=== PATIENT | male | born 1945 | race Caucasian/White ===

== ENCOUNTER 2018-04-05 10:24 | Inpatient (IN) | payer OTHER ==
[~2018-04-05] VITALS: Ht 167.6 cm; Wt 98.9 kg
--- NOTE | 2018-04-05 10:33 | ED DYSPNEA/ASTHMA COMPLAINT ---
History of Present Illness General Chief Complaint: Dyspnea (COPD, CHF, Other) Stated Complaint: SENT BY DR HERNANDEZ FOR EVAL SOB AND FLUID RETENTI Source: patient, old records Exam Limitations: no limitations Vital Signs & Intake/Output Vital Signs & Intake/Output Vital Signs Date Time Temp Pulse Resp B/P B/P Pulse O2 O2 Flow FiO2 Mean Ox Delivery Rate 04/05 1725 Nasal 2.0L Cannula 04/05 1631 97.9 94 22 113/57 96 Room Air 04/05 1150 97.0 100 106/75 94 Nasal 3.0L Cannula 04/05 1115 97.0 94 16 104/58 94 Nasal 3.0L Cannula 04/05 1025 97 Nasal 2.0L Cannula 04/05 1025 98.0 109 26 107/73 92 Nasal 3.0L Cannula Allergies Coded Allergies: No Known Allergies (04/05/18) Reconcile Medications Aspirin (Lo-Dose Aspirin EC) 81 MG TABLET.DR 1 TAB PO DAILY HEART HEALTH ( Reported) Atorvastatin Calcium 20 MG TABLET 1 TAB PO DAILY CHOLESTEROL (Reported) Cyclosporine (Restasis) 0.05 % DROPERETTE 1 GTT OPH BID EYE (Reported) Lisinopril 5 MG TABLET 1 TAB PO DAILY HEART (Reported) Pioglitazone HCl 30 MG TABLET 1 TAB PO DAILY DIABETES (Reported) Prednisone 20 MG TABLET 1 TAB PO DAILY STEROID (Reported) Silodosin (Rapaflo) 8 MG CAPSULE 1 CAP PO DAILY BPH (Reported) Vilazodone (Viibryd) 40 MG TABLET 1 TAB PO DAILY MENTAL HEALTH (Reported) Triage Nurses Notes Reviewed? yes Onset: Abrupt Duration: week(s):, constant Timing: recent history Severity: moderate, severe Activities at Onset: none HPI: 73-year-old male comes into the emergency room with increased shortness of breath has been going on for the past week. Denies any cough fever chills chest pain. He had an outpatient x-ray done this past which showed a large amount of fluid and was told to come to the hospital for further evaluation by his pulmonary K. Mindi Porras MD. Denies any history of congestive heart failure. Denies any other associated symptoms. (Jin Curry) Past History Medical History Any Pertinent Medical History? none Cardiovascular: hyperlipidemia Endocrine: diabetes Surgical History Surgical History: non-contributory Family History Hx Contributory? No (Jin Curry) Review of Systems Review of Systems Constitutional: Reports: no symptoms. EENTM: Reports: no symptoms. Respiratory: Reports: see HPI. Cardiovascular: Reports: see HPI. GI: Reports: no symptoms. Genitourinary: Reports: no symptoms. Musculoskeletal: Reports: no symptoms. Skin: Reports: no symptoms. Neurological/Psychological: Reports: no symptoms. Hematologic/Endocrine: Reports: no symptoms. Immunologic/Allergic: Reports: no symptoms. All Other Systems: Reviewed and Negative (Jin Curry) Physical Exam Physical Exam General Appearance: well developed/nourished, alert, awake Head: atraumatic Eyes: Bilateral: normal appearance. Ears, Nose, Throat: normal ENT inspection, hearing grossly normal Neck: normal inspection Respiratory: decreased breath sounds (right lower lung field), respiratory distress (mild) Cardiovascular: regular rate/rhythm Gastrointestinal: soft Neurologic/Psych: awake, alert Skin: intact Core Measures ACS in differential dx? No CVA/TIA Diagnosis No Sepsis Present: No Sepsis Focused Exam Completed? No (Jin Curry) Progress Differential Diagnosis: asthma, AMI, bronchitis, costochondritis, CHF, COPD, musculoskeletal pain, pericarditis, pulmonary embolism, pneumonia, pneumothorax, rib fracture, unstable angina Plan of Care: Orders Procedure Date/time Status CT CHEST WO IV CONTRAST 04/06 0800 Active CBC WITHOUT DIFFERENTIAL 04/06 0600 Active BASIC ELECTROLYTES PLUS BUN&CR 04/06 0600 Active Consistent Carbohydrate 3 04/05 D Active Drains/Tubes 04/05 1724 Active Weight 04/05 1631 Active Vital Signs 04/05 1631 Active Teach/Educate 04/05 1631 Active Pain Treatment and Response 04/05 1631 Active Nutritional Intake, Monitor 04/05 1631 Active Isolation 04/05 1631 Active Intake & Output 04/05 1631 Active Patient Care Conference 04/05 1631 Active Activity/Ambulation 04/05 1631 Active STREP PNEUMO URINARY ANTIGEN 04/05 1621 Complete LEGIONELLA URINARY ANTIGEN 04/05 1621 Complete CYTOLOGY SPECIMEN 04/05 1621 Active ECHOCARDIOGRAM 04/05 1600 Active Pathway - chart 04/05 1551 Active Add-on Test (ER Only) 04/05 1500 Active BODY FLUID CELL COUNT 04/05 1500 Active CULTURE,BODY FLUID 04/05 1425 Active BODY FLUID CELL COUNT 04/05 1425 Complete Patient Data 04/05 1402 Active ED Holding Orders 04/05 1354 Active Admit to inpatient 04/05 1354 Active Vital Signs 04/05 1354 Active Code Status 04/05 1354 Active CYTOLOGY SPECIMEN 04/05 1212 Active BODY FLUID TOTAL PROTEIN 04/05 1212 Complete BODY FLUID LDH 04/05 1212 Complete BODY FLUID GLUCOSE 04/05 1212 Complete PLEURAL PH (GEN) 04/05 1206 Complete Add-on Test (ER Only) 04/05 1156 Active Intake & Output 04/05 1155 Active URINALYSIS 04/05 1152 Complete PARTIAL THROMBOPLASTIN TIME 04/05 1100 Complete PROTHROMBIN TIME 04/05 1100 Complete LDH (LACT ACID DEHYDROGENASE) 04/05 1100 Active GLYCOSYLATED HGB 04/05 1100 Active Telemetry/Permaculture Designer 04/05 1032 Complete TROPONIN LEVEL 04/05 1032 Active COMPREHENSIVE METABOLIC PANEL 04/05 1032 Active CBC WITHOUT DIFFERENTIAL 04/05 1032 Complete B-TYPE NATRIURETIC PEP (BNP) 04/05 1032 Active EKG 04/05 1027 Active TRC EVALUATION (GEN) 04/05 UNK Active OXYGEN SETUP (GEN) 04/05 UNK Active INCENTIVE SPIROMETRY TRX (GEN) 04/05 UNK Active House Staff 04/05 UNK Active Lab Add-on Test 04/05 UNK Active VTE Mechanical Prophylaxis 04/05 UNK Active Vital Signs 04/05 UNK Complete Nursing Misc 04/05 UNK Active Intake & Output 04/05 UNK Complete FingerStick- Glucose 04/05 UNK Active Activity/Ambulation 04/05 UNK Active MISSING MEDICATION FORM 04/05 UNK Active PHYSICIAN CONSULT 04/05 UNK Active Current Medications Sig/Alli Start time Last Medication Dose Stop Time Status Admin Azithromycin 250 MG 04/06 1700 AC (Zithromax) Aspirin Buffered 81 MG DAILY 04/06 900 AC (Ecotrin) Atorvastatin Calcium 20 MG DAILY 04/06 900 AC (Lipitor) Enoxaparin Sodium 40 MG DAILY 04/06 900 AC (Lovenox) Lisinopril 5 MG DAILY 04/06 900 AC (Prinivil) Ceftriaxone Sodium 1,000 MG 1700 04/05 1700 AC 04/05 (Rocephin) 1825 Insulin Aspart 0 TIDAC 04/05 1700 AC 04/05 (NovoLOG) 1825 Acetaminophen 650 MG Q6P PRN 04/05 1600 AC (Tylenol) Laboratory Tests 04/05/18 1426: Phlebotomy Draw Site RT CHEST TUBE, Pleural pH 7.28 04/05/18 1425: Fluid WBC 1333 H, Fld Total RBCs Counted 25226 H 04/05/18 1425: Lymphocytes 43, % Normal PMNs 32, Misc Hematology Test , Fluid Glucose 124, Fluid Total Protein 4.3, Fluid LDH 795 04/05/18 1153: Urine Color YEL, Urine Clarity CLEAR, Urine pH 6.0, Ur Specific [place] 1.020, Urine Protein NEG, Urine Ketones NEG, Urine Nitrite NEG, Urine Bilirubin NEG, Urine Urobilinogen 0.2, Ur Leukocyte Esterase NEG, Ur Microscopic EXAM NOT REQUIRED, Urine Hemoglobin NEG, Urine Glucose NEG 04/05/18 1100: Anion Gap 13, Estimated GFR 59 L, BUN/Creatinine Ratio 31.7 H, Glucose 162 H, Hemoglobin A1c Pending, Calcium 8.3 L, Total Bilirubin 0.6, AST 39, ALT 52, Alkaline Phosphatase 143 H, Lactate Dehydrogenase 334, Troponin I < 0.01, Pro-B -Natriuretic Pept 319 H, Total Protein 5.8 L, Albumin 2.9 L, Globulin 2.9, Albumin/Globulin Ratio 1.0 L, PT 13.2 H, INR 1.21 H, APTT 28, CBC w Diff NO MAN DIFF REQ, RBC 4.90, MCV 82.4, MCH 27.3, MCHC 33.2, RDW 15.1 H, MPV 7.1 L, Gran % 83.0 H, Lymphocytes % 5.8 L, Monocytes % 10.7 H, Eosinophils % 0.4, Basophils % 0.1, Absolute Granulocytes 9.3 H, Absolute Lymphocytes 0.7 L, Absolute Monocytes 1.2 H, Absolute Eosinophils 0, Absolute Basophils 0 Microbiology 04/05 1915 URINE ROUT: Legionella Antigen - COMP 04/05 1915 URINE ROUT: Streptococcus pneumoniae Antigen (M - COMP 04/05 1425 BODY FLUID: Body Fluid Culture - RES 04/05 1425 BODY FLUID: Gram Stain - RES 04/05 1212 BODY FLUID: Body Fluid Culture - CAN Cancelled: EDITED 04/05 1212 BODY FLUID: Gram Stain - CAN Cancelled: EDITED Diagnostic Imaging: Viewed by Me: Radiology Read. Discussed w/RAD: Radiology Read. Radiology Impression: PATIENT: JOHNSON HICKS PRESENT AGE: 73 PATIENT ACCOUNT NO: [id number] : 45 LOCATION: [facility] ORDERING PHYSICIAN: Jin LAWLER SERVICE DATE: 04/05/18 EXAM TYPE : RAD - XRY-CHEST XRAY, TWO VIEWS EXAMINATION: XR CHEST CLINICAL INFORMATION: Shortness of breath. COMPARISON: Chest x-ray dated 04/01/2018. TECHNIQUE: 3 views of the chest were obtained. FINDINGS: There has been interval increase in size of the right-sided pleural effusion, with now only a small amount of aerated lung remaining in the right upper lobe. The left lung remains fully expanded and clear. Cardiac silhouette is partially obscured by the right pleural fluid but is normal in size. Calcification of the aortic arch is seen. Bony structures are unremarkable. IMPRESSION: 1. Interval increase in size of right-sided pleural effusion, now large in volume and extending to the right lung apex with only a small amount of aerated lung in the right lung apex remaining. 2. Left lung expanded and clear. DICTATED BY: Marry Juarez MD DATE/TIME DICTATED:04/05/181135 CAR PACKER:BARBARA DATE/TIME TRANSCRIBED:04/05/181135 CONFIDENTIAL, DO NOT COPY WITHOUT APPROPRIATE AUTHORIZATION. <Electronically signed in Other Vendor System> SIGNED BY: Marry Juarez MD 04/05/18 1143 Initial ED EKG: normal sinus rhythm, rate (100), nonspecific ST T wave chg (Jin Curry) Departure Departure Disposition: STILL A PATIENT Condition: Stable Clinical Impression Primary Impression: Hypoxia Secondary Impressions: Large pleural effusion Referrals: Geoff Moore MD (PCP/Family) Departure Forms: Customer Survey General Discharge Information Admission Note Spoke With: Geoff Moore MD Documentation of Exam: Documentation of any treatments & extenuating circumstances including Concerns Regarding Discharge (functional status, medication knowledge or non-compliance, living conditions, etc.) that warrant an admission rather than observation: Patient required chest tube. Interventional radiology. Pulmonary consult. Supplemental oxygen. Medically not safe for discharge. Patient required greater than 72 hours care. Case management consult. (Jin Curry) PA/NEON SIGN SERVICER Co-Sign Statement Statement: ED Attending supervision documentation- [X] I saw and evaluated the patient. I have also reviewed all the pertinent lab results and diagnostic results. I agree with the findings and the plan of care as documented in the PA's/NEON SIGN SERVICER's documentation. [] I have reviewed the ED Record and agree with the PA's/NEON SIGN SERVICER's documentation. [] Additions or exceptions (if any) to the PAs/NEON SIGN SERVICER's note and plan are summarized below: [] I saw and personally examined the patient and I agree with the PAs evaluation. 73-year-old man who was at Merna Porras MD's office and found to be hypoxic with a room air saturation of 89%. He admits to severe difficulty breathing. He has a large pleural effusion. He is being admitted to the hospital for further care and diagnostic and therapeutic thoracentesis., (Jose D ALLAN,Marlon Rios) Critical Care Note Critical Care Note Critical Care Time: 30-74 min (45) (Jin Curry)
[2018-04-05 11:12] LABS: ABSOLUTE BASOPHIL COUNT 0 /CUMM (0.0-0.2); ABSOLUTE EOSINOPHIL COUNT 0 /CUMM (0.0-0.7); ABSOLUTE GRANULOCYTE CT 9.3 /CUMM (1.4-6.5); ABSOLUTE LYMPH COUNT 0.7 /CUMM (1.2-3.4); ABSOLUTE MONOCYTE COUNT 1.2 /CUMM (0.10-0.60); BASOPHIL % 0.1 % (0.0-2.0); EOSINOPHIL % 0.4 % (0-5); HEMATOCRIT 40.4 % (42-52); MEAN CORPUSCULAR HGB 27.3 PG (27.0-31.0); MEAN CORPUSCULAR HGB CONC 33.2 G/DL (33.0-37.0); MEAN CORPUSCULAR VOLUME 82.4 FL (80.0-94.0); MEAN PLATELET VOLUME 7.1 FL (7.4-10.4); PLATELET COUNT 586 /CUMM (130-400); RBC DISTRIBUTION WIDTH 15.1 % (11.5-14.5); WHITE BLOOD CELL COUNT 11.2 /CUMM (4.8-10.8)
[2018-04-05] MEDS ORDERED: LISINOPRIL5 M1 PO (11:12)
[2018-04-05] MEDS ORDERED: ATORVASTATIN CA20 M1 PO (11:12)
[2018-04-05] MEDS ORDERED: PIOGLITAZONE HC30 M1 PO (11:12)
[2018-04-05] MEDS ORDERED: PREDNISONE20 M1 PO (11:12)
[2018-04-05] MEDS ORDERED: LO-DOSE ASPIRIN81 MG PO (11:12)
[2018-04-05] MEDS ORDERED: RAPAFLO8 M1 PO (11:13)
[2018-04-05] MEDS ORDERED: VIIBRYD40 M1 PO (11:13)
[2018-04-05] MEDS ORDERED: RESTASIS1 EACH OPH (11:13)
--- NOTE | 2018-04-05 11:43 | RADIOLOGY REPORT ---
EXAMINATION: XR CHEST CLINICAL INFORMATION: Shortness of breath. COMPARISON: Chest x-ray dated 04/01/2018. TECHNIQUE: 3 views of the chest were obtained. FINDINGS: There has been interval increase in size of the right-sided pleural effusion, with now only a small amount of aerated lung remaining in the right upper lobe. The left lung remains fully expanded and clear. Cardiac silhouette is partially obscured by the right pleural fluid but is normal in size. Calcification of the aortic arch is seen. Bony structures are unremarkable. IMPRESSION: 1. Interval increase in size of right-sided pleural effusion, now large in volume and extending to the right lung apex with only a small amount of aerated lung in the right lung apex remaining. 2. Left lung expanded and clear.
[2018-04-05 12:25] LABS: PT 13.2 SEC (9.4-12.5); PTT 28 SEC (25-37)
--- NOTE | 2018-04-05 14:14 | History & Physical ---
Willie Shelton 04/05/18 1412: General Information and HPI MD Statement: I have seen and personally examined JOHNSON HICKS and documented this H&P. The patient is a 73 year old M who presented with a patient stated chief complaint of [worsening shortness of breath x 1 month]. Source of Information: patient, old records History of Present Illness: Mr Maxim is a 73 yo M with a PMH of T2DM, BPH, GERD who presents with a 2-3 week history of progressively worsening shortness of breath associated with dizziness, trouble sleeping, decreased p.o. intake, productive cough, general malaise, dyspnea on exertion. The shortness of breath was preceded by a one- month history of lower extremity swelling. Patient states that on Thursday, 1 week ago, he went to a walk-in clinic, who gave him a prednisone taper and antibiotics that he is not sure of the name. He states that he completed this course, however it did not dissipate his symptoms. Per patient's daughter, she saw him at the [facility], stated that he looked malaised, and she called his primary, Dr. Moore, who sent him for a chest x-ray on and a audio/video technician appointment Dr. Porras on Thursday. Dr. Porras had seen his chest x-ray on Thursday night, and called the patient to come in for an earlier appointment as opposed to late appointment on Thursday. He went to Dr. Porras's appointment, who sent him to the emergency department. There, he went for a diagnostic and therapeutic pleurocentesis, which he said helped alleviate some of his symptoms. 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 intake, productive cough, lower extremity swelling, increased difficulty urinating Negative for: fevers/chills, blurred vision, weight loss, chest pain, palpitations, abdominal pain, nausea/vomiting, joint pains, myalgias. Allergies/Medications Allergies: Coded Allergies: No Known Allergies (04/05/18) Home Med list Aspirin (Lo-Dose Aspirin EC) 81 MG TABLET.DR 1 TAB PO DAILY HEART HEALTH ( Reported) Atorvastatin Calcium 20 MG TABLET 1 TAB PO DAILY CHOLESTEROL (Reported) Cyclosporine (Restasis) 0.05 % DROPERETTE 1 GTT OPH BID EYE (Reported) Lisinopril 5 MG TABLET 1 TAB PO DAILY HEART (Reported) Pioglitazone HCl 30 MG TABLET 1 TAB PO DAILY DIABETES (Reported) Prednisone 20 MG TABLET 1 TAB PO DAILY STEROID (Reported) Silodosin (Rapaflo) 8 MG CAPSULE 1 CAP PO DAILY BPH (Reported) Vilazodone (Viibryd) 40 MG TABLET 1 TAB PO DAILY MENTAL HEALTH (Reported) Past History Travel History Traveled to [place] past 21 day No Medical History Neurological: NONE EENT: hearing loss Cardiovascular: NONE Respiratory: pneumonia, COPD ? 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 Ambulation: independent IADLs Independent: shopping, housework, finances, food prep, telephone, transportation , medication admin. Review of Systems Review of Systems Constitutional: Reports: see HPI. Exam & Diagnostic Data Last 24 Hrs of Vital Signs/I&O Vital Signs Date Time Temp Pulse Resp B/P B/P Pulse O2 O2 Flow FiO2 Mean Ox Delivery Rate 04/05 1631 97.9 94 22 113/57 96 Room Air 04/05 1150 97.0 100 106/75 94 Nasal 3.0L Cannula 04/05 1115 97.0 94 16 104/58 94 Nasal 3.0L Cannula 04/05 1025 97 Nasal 2.0L Cannula 04/05 1025 98.0 109 26 107/73 92 Nasal 3.0L Cannula Intake & Output 04/05 1600 04/05 0800 04/05 0000 Intake Total Output Total 75 Balance -75 Output, Urine 75 Patient 218 lb Weight Weight Reported by Patient Measurement Method Physical Exam General Appearance Alert, Oriented X3, Cooperative, No Acute Distress Skin No Rashes, DRESSING R POSTERIOR CHEST WALL, C/D/I; PIGTAIL IN PLACE Skin Temp/Moisture Exam: Warm/Dry Neck No JVD Cardiovascular Regular Rate, Normal S1, Normal S2 Lungs MERLINE exp wheeze; diminished in all rcouch Abdomen Soft, No Tenderness, obese Neurological Normal Speech, Sensation Intact Extremities 2-3+ edema b/l LE up to mid zaragoza Vascular Normal Pulses Last 24 Hrs of Labs/Genaro: Laboratory Tests 04/05/18 1426: Phlebotomy Draw Site RT CHEST TUBE, Pleural pH 7.28 04/05/18 1425: Fluid WBC 1333 H, Fld Total RBCs Counted 03487 H 04/05/18 1425: Fluid Glucose 124, Fluid Total Protein 4.3, Fluid LDH 795 04/05/18 1153: Urine Color YEL, Urine Clarity CLEAR, Urine pH 6.0, Ur Specific [place] 1.020, Urine Protein NEG, Urine Ketones NEG, Urine Nitrite NEG, Urine Bilirubin NEG, Urine Urobilinogen 0.2, Ur Leukocyte Esterase NEG, Ur Microscopic EXAM NOT REQUIRED, Urine Hemoglobin NEG, Urine Glucose NEG 04/05/18 1100: Anion Gap 13, Estimated GFR 59 L, BUN/Creatinine Ratio 31.7 H, Glucose 162 H, Calcium 8.3 L, Total Bilirubin 0.6, AST 39, ALT 52, Alkaline Phosphatase 143 H , Lactate Dehydrogenase 334, Troponin I < 0.01, [id number] Pept 319 H, Total Protein 5.8 L, Albumin 2.9 L, Globulin 2.9, Albumin/Globulin Ratio 1.0 L, PT 13.2 H, INR 1.21 H, APTT 28, CBC w Diff NO MAN DIFF REQ, RBC 4.90, MCV 82.4, MCH 27.3, MCHC 33.2, RDW 15.1 H, MPV 7.1 L, Gran % 83.0 H, Lymphocytes % 5.8 L, Monocytes % 10.7 H, Eosinophils % 0.4, Basophils % 0.1, Absolute Granulocytes 9.3 H, Absolute Lymphocytes 0.7 L, Absolute Monocytes 1.2 H, Absolute Eosinophils 0, Absolute Basophils 0 Microbiology 04/05 162 URINE ROUT: Legionella Antigen - ORD 04/05 162 URINE ROUT: Streptococcus pneumoniae Antigen (M - ORD 04/05 1425 BODY FLUID: Body Fluid Culture - RES 04/05 1425 BODY FLUID: Gram Stain - RES 04/05 1212 BODY FLUID: Body Fluid Culture - CAN Cancelled: EDITED 04/05 121 BODY FLUID: Gram Stain - CAN Cancelled: EDITED Assessment/Plan Assessment: Mr Hicks is a 73 yo M with a PMH of T2DM, BPH, GERD who presents with a 2-3 week history of progressively worsening shortness of breath associated with dizziness, trouble sleeping, decreased p.o. intake, productive cough, general malaise, dyspnea on exertion. He went for diagnostic and therapeutic thoracentesis in ED, and is admitted for workup of his pleural effusion. Problem list/Assessment/Hospital Course: #Right-sided pleural effusion pending thoracentesis #Dyspnea 2/2 pleural effusion/COPD exacerbation? #thrombocytosis with unclear etiology #PMH of GERD, BPH, HTN, HLD, T2DM, colonic polyps (tubular adenoma) #R sided pleural effusion -Went to IR for diagnostic/therapeutic tap; chest tube in place draining ~1300mL serosanguinous fluid -Fluid sent for culture, cytology -S/P Pigtail placement, draining ~1300cc serosanguinous fluid. Will obtain post placement CXR -Potential chest CT in am -Pulm input appreciated. Will f/u reccs. -O2 for sats >92%, TRC and nebs as needed #Dyspnea 2/2 pleural effusion -Fluid studies pending -On Ceftriaxone and Azithro, started after cultures sent -F/u sputum culture -ECHO ordered for tomorrow AM #Thrombocytosis -Will trend CBC #T2DM -ISS, accuchecks q6 -HbA1c ordered #Chronic med conditions -Continue home meds DVT PPx IV access Tolerating CC3 Diet Full Code Disposition - PT/OT if function decreases from baseline As Ranked By This Provider Problem List: 1. Large pleural effusion 2. Hypoxia Core Measures/Misc (05/24) Acute Coronary Syndrome ACS Diagnosis: No Congestive Heart Failure Congestive Heart Failure Diagnosis No Cerebrovascular Accident CVA/TIA Diagnosis: No VTE (View Protocol) VTE Risk Factors Age>40 No Mechanical VTE Prophylaxis d/t N/A MechProphylax Ordered No VTE Pharm Prophylaxis d/t NA PharmProphylax ordered Sepsis (View protocol) Sepsis Present: No If YES complete Sepsis Event Note If YES complete Sepsis Event Note Tracy Rene 04/05/18 1427: Core Measures/Misc (05/24) Sepsis (View protocol) If YES complete Sepsis Event Note If YES complete Sepsis Event Note Resident Review Statement Resident Statement: examined this patient, discussed with sports internship, agreed with sports internship, discussed with family, reviewed EMR data (avail), discussed with nursing , discussed with case mgmt, reviewed images, amended to note Other Findings: Mr. Hicks is a 73yo M w/ PMH of COPD, GERD, BPH, irregular heart beat per pt? , HTN, HLD, T2DM, colonic polyps (tubular adenoma) hearing loss, sent by Dr. Porras for eval of SOB/fluid retention w/ incidental pleural effusion on 2017. He was in his usual state of health and had sudden onset of SOB around that he was sent by PCP for CXR, and has incidental finding of right pleural effusion, had received steroids from urgent care however not resolved. Please refer to history above for details. -Baselines: ambulated freely without assist. 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 -Smoking: active smoker 1-2 PPD quitted 1994 -Alcohol: denied -Rec Drugs: denied -Saw Dr. Noble for cardiology 9 months ago, no specific recommendation and f/u PRN. On admission, Vitals: Stable afebrile, tachycardia 100, RR 26->16, BP 107/73, 93% on the nasal cannula 3 L Physical exam as above -CBC: Leukocytosis 11.2, H/H 13 point/40.4, thrombocytosis 586 -BMP: Unremarkable, CR 1.2, calcium 8.3 corrected to albumin 2.9 within normal range -PT/INR: 13.2/1.21 -UA/Microbiology: No previous microbiology within [facility]. Negative UA -Misc: Troponin negative 1, proBNP 319 -CXR: 1. Interval increase in size of right-sided pleural effusion, now large in volume and extending to the right lung apex with only a small amount of aerated lung in the right lung apex remaining. 2. Left lung expanded and clear. -EKG: NSR w/o significant ST-T abnormalities. -Last Echo: No previous echo in our system -Interventions in ER: Lasix 40 mg IV 1 Patient underwent IR thoracentesis while in ER and tapped 1.5L out, with additional output around 1.3L serosanguous fluid in atrium box s/p chest tube placement. Patient appeared to be not in SOB/acute distress, breathing comfortably under 3LNC s/p IR procedure. At this point, differential dx including infection possibly at lung, malignancy pending rule out, and also unlikely, acute CHF however usually should give bilateral rather than unilateral pleural effusion. Patient was never diagnosed on COPD/asthma and was not on any inhaler at home. He was seeing Dr. Porras for the first time prior ER admission. Problem list/Assessment/Hospital Course: #Right-sided pleural effusion s/p thoracentesis #Dyspnea 2/2 pleural effusion, resolving s/p thoracentesis #thrombocytosis with unclear etiology #PMH of COPD, GERD, BPH, HTN, HLD, T2DM, colonic polyps (tubular adenoma) hearing loss - Admit to general medicine. - Vitals per protocol, monitor I&O per protocol. - TRC/Neb/O2/incentive spirometry - Novolog SS/Accucheck, hold oral hypoglycemics - s/p thoracentesis, monitor chest tube output daily. - Will start ceftriaxone/azithromycin to empiric coverage of any infection pending further eval/lab - PT/OT if needed - Restrain IV fluid to avoid overload for now. - Continue all other home meds. - Pending Pulm consult - Pending blood/pleural fluid culture/cytology/studies/antigens. - Pain per pathway DVT prophylaxis Lovenox + ALPS Diabetic Diet CC3 IV Access: Peripheral IV Full Code
--- NOTE | 2018-04-05 16:15 | ULTRASOUND REPORT ---
PROCEDURE: Ultrasound-guided chest tube placement. INDICATION: Large right pleural effusion. ACCESS: 6 Fr. One-Step Needle REQUESTING PRACTITIONER: Jin Bowens MD CLINICIAN(S): Aramis Benson M.D. CONSENT: Informed consent was obtained from the patient prior to the procedure. During this process, the procedure and potential alternatives were explained along with the intended outcome and benefits. The risks of the procedure, including the possibility of an unsuccessful procedure as well as the risk of not doing the procedure were discussed. The patient was given the opportunity to ask any questions regarding the procedure and appeared competent to make medical decisions. A signed consent form which documents this discussion was placed in the medical record. A timeout procedure was performed. HISTORY: JOHNSON HICKS is a 73 years old Male with shortness of breath. A recent chest x-ray demonstrates a large right pleural effusion. The patient was referred for ultrasound-guided right chest tube placement. MEDICATIONS: 10ml 1% lidocaine. TECHNIQUE/FINDINGS: Appropriate pre-procedure medical history and imaging studies were reviewed. The patient was brought to the ultrasound department and placed in the seated position. Ultrasound images of the right thorax were obtained to localize a large pleural effusion. Images were permanently saved to the record. An area of the patient's right back was prepped and draped in the standard sterile fashion. 10 mL of 1% lidocaine was used to obtain local anesthesia of the skin and deeper tissues. A standard small bore needle was introduced to sample fluid and demonstrated a safe access route. A 6 [place] one step needle was then used to access the pleural cavity. A guidewire was then placed through the introducer into the chest. The access site was then sequentially dilated using dilators sized 8 Fr and 10 Fr. A 10 Fr. nonlocking catheter was then advanced over the wire into the chest cavity. The wire was removed and the catheter was secured to the skin with a single suture and a sterile dressing was placed over the site. The catheter was then connected to a closed chest drainage system. Approximately 1500 mL's of fluid was drained. The valve was closed at this time. This was discussed with CHRISTY Schreiber. They will drain the lung further as they feel clinically appropriate. The patient tolerated the procedure well without evidence of complications. IMPRESSION: Successful right ultrasound-guided chest tube placement yielding 1.5 L of fluid.
--- NOTE | 2018-04-05 17:25 | Cons- Pulmonary ---
General Information and HPI Consulting Request Date of Consult: 04/05/18 Requested By: Dr. Moore Reason for Consult: Shortness of breath Source of Information: patient, family, old records Exam Limitations: no limitations History of Present Illness: The patient is a 73-year-old male with a past medical history significant for type 2 diabetes, BPH, and reflux disease. The patient was seen and evaluated as an outpatient in my office earlier today. He presented with several weeks of progressively worsening shortness of breath in association with severe orthopnea. He also complained of dizziness, decreased oral intake, general malaise, and a cough productive of green sputum. He also has had significant lower extremity swelling. Approximately 1 week ago, the patient went to an outpatient clinic and was prescribed a prednisone taper and antibiotics. He did not improve as a result of that visit. The patient then saw his primary care physician and was sent for a chest x-ray which showed a large right-sided pleural effusion. The patient presented to my office with the same symptoms. Upon my evaluation, the patient was hypoxic with an oxygen saturation of 84% on room air. He was tachypneic, tachycardic and in mild to moderate respiratory distress. I sent the patient to the emergency department for workup including routine labs, workup for chest pain, and a right-sided diagnostic and therapeutic thoracentesis. Postthoracentesis, the patient is feeling significantly improved. Allergies/Medications Allergies: Coded Allergies: No Known Allergies (04/05/18) Home Med List: Aspirin (Lo-Dose Aspirin EC) 81 MG TABLET.DR 1 TAB PO DAILY HEART HEALTH ( Reported) Atorvastatin Calcium 20 MG TABLET 1 TAB PO DAILY CHOLESTEROL (Reported) Cyclosporine (Restasis) 0.05 % DROPERETTE 1 GTT OPH BID EYE (Reported) Lisinopril 5 MG TABLET 1 TAB PO DAILY HEART (Reported) Pioglitazone HCl 30 MG TABLET 1 TAB PO DAILY DIABETES (Reported) Prednisone 20 MG TABLET 1 TAB PO DAILY STEROID (Reported) Silodosin (Rapaflo) 8 MG CAPSULE 1 CAP PO DAILY BPH (Reported) Vilazodone (Viibryd) 40 MG TABLET 1 TAB PO DAILY MENTAL HEALTH (Reported) Current Medications: Current Medications Sig/Alli Start time Last Medication Dose Route Stop Time Status Admin Acetaminophen 650 MG Q6P PRN 04/05 1600 AC PO Aspirin Buffered 81 MG DAILY 04/06 900 AC PO Atorvastatin Calcium 20 MG DAILY 04/06 900 AC PO Azithromycin 250 MG 04/06 1700 AC PO Azithromycin 500 MG ONCE ONE 04/05 1630 AC Sodium Chloride 250 ML IV 04/05 1729 Ceftriaxone Sodium 1,000 MG 04/05 170 AC IV Enoxaparin Sodium 40 MG DAILY 04/06 09 AC SC Fentanyl Citrate 0 .STK-MED ONE 04/05 1355 DC .ROUTE Furosemide 0 .STK-MED ONE 04/05 1112 DC IV Furosemide 40 MG ONCE ONE 04/05 1100 DC 04/05 IV 04/05 1101 1114 Insulin Aspart 0 TIDAC 04/05 1700 AC SC Lisinopril 5 MG DAILY 04/06 900 AC PO Review of Systems Review of Systems Constitutional: Reports: malaise, weakness, unexplained weight loss. Denies: chills, diaphoresis, fever. EENTM: Denies: no symptoms. Cardiovascular: Reports: chest pain, edema, orthopena, peripheral edema. Denies: palpitations, syncope. Respiratory: Reports: cough, orthopnea, short of breath, sputum production. Denies: hemoptysis, stridor, wheezing. GI: Denies: abdominal pain, bloating, diarrhea, bloody stool. Genitourinary: Reports: hesitation, urgency. Musculoskeletal: Denies: joint pain. All Other Systems: Reviewed and Negative Past History Travel History Traveled to [place] past 21 day No Medical History Neurological: NONE EENT: hearing loss Cardiovascular: hyperlipidemia Respiratory: pneumonia, COPD ? Gastrointestinal: GERD Hepatic: NONE Renal: benign prost hyperplasia Musculoskeletal: NONE Psychiatric: NONE Endocrine: diabetes Blood Disorders: NONE Cancer(s): NONE RISK CONTROL OFFICER/Reproductive: NONE Surgical History Surgical History: non-contributory Psychosocial History Where Do You Live? Home Who Do You Live With? spouse ETOH Use: denies use Illicit Drug Use: denies illicit drug use Living Will? no Functional Ability ADLs Independent: dressing, eating, toileting, bathing. Ambulation: independent IADLs Independent: shopping, housework, finances, food prep, telephone, transportation , medication admin. Exam & Diagnostic Data Last 24 Hrs of Vital Signs/I&O Vital Signs Date Time Temp Pulse Resp B/P B/P Pulse O2 O2 Flow FiO2 Mean Ox Delivery Rate 04/05 1631 97.9 94 22 113/57 96 Room Air 04/05 1150 97.0 100 106/75 94 Nasal 3.0L Cannula 04/05 1115 97.0 94 16 104/58 94 Nasal 3.0L Cannula 04/05 1025 97 Nasal 2.0L Cannula 04/05 1025 98.0 109 26 107/73 92 Nasal 3.0L Cannula Intake & Output 04/05 1600 04/05 0800 04/05 0000 Intake Total Output Total 75 Balance -75 Output, Urine 75 Patient 218 lb Weight Weight Reported by Patient Measurement Method Physical Exam General Appearance: alert, awake, moderate distress Head: atraumatic, normal appearance Eyes: Bilateral: PERRL. Neck: supple Respiratory: abscent breath sounds on the right Cardiovascular: regular rate/rhythm Gastrointestinal: normal bowel sounds, soft, non-tender Extremities: bilateral pitting edema Skin: intact, normal color, warm/dry Last 48 Hrs of Labs/Genaro: Laboratory Tests 04/05/18 1426: Phlebotomy Draw Site RT CHEST TUBE, Pleural pH 7.28 04/05/18 1425: Fluid WBC 1333 H, Fld Total RBCs Counted 30015 H 04/05/18 1425: Fluid Glucose 124, Fluid Total Protein 4.3, Fluid LDH 795 04/05/18 1153: Urine Color YEL, Urine Clarity CLEAR, Urine pH 6.0, Ur Specific [place] 1.020, Urine Protein NEG, Urine Ketones NEG, Urine Nitrite NEG, Urine Bilirubin NEG, Urine Urobilinogen 0.2, Ur Leukocyte Esterase NEG, Ur Microscopic EXAM NOT REQUIRED, Urine Hemoglobin NEG, Urine Glucose NEG 04/05/18 1100: Anion Gap 13, Estimated GFR 59 L, BUN/Creatinine Ratio 31.7 H, Glucose 162 H, Calcium 8.3 L, Total Bilirubin 0.6, AST 39, ALT 52, Alkaline Phosphatase 143 H , Lactate Dehydrogenase 334, Troponin I < 0.01, Olj-W-Ycvyutpmuts Pept 319 H, Total Protein 5.8 L, Albumin 2.9 L, Globulin 2.9, Albumin/Globulin Ratio 1.0 L, PT 13.2 H, INR 1.21 H, APTT 28, CBC w Diff NO MAN DIFF REQ, RBC 4.90, MCV 82.4, MCH 27.3, MCHC 33.2, RDW 15.1 H, MPV 7.1 L, Gran % 83.0 H, Lymphocytes % 5.8 L, Monocytes % 10.7 H, Eosinophils % 0.4, Basophils % 0.1, Absolute Granulocytes 9.3 H, Absolute Lymphocytes 0.7 L, Absolute Monocytes 1.2 H, Absolute Eosinophils 0, Absolute Basophils 0 Diagnostic Data CXR Results Large right effusion. Assessment/Plan Impression/Plan: 1. Acute hypoxic respiratory failure secondary to large right-sided pleural effusion of unclear etiology. 2. Rule out community-acquired pneumonia with complicated parapneumonic effusion. 3. Chest pain, likely related to pleural effusion. 4. Lower extremity edema, rule out CHF/right-sided heart failure. Recommendations: * Pancultures to be taken. * Start empiric ceftriaxone and azithromycin. * Check urine for strep pneumo and Legionella. * Continue drainage of pleural effusion. * Repeat chest x-ray has been ordered and is pending. * Check a sputum cytology. * Will need to follow-up cytology for pleural effusion. * Order a CT scan of the chest for tomorrow morning. * Check an echocardiogram. * Monitor for chest pain. * Oxygen for sats greater than 92%. * DVT prophylaxis at all times. * Thank you for the consult. I discussed the plan of care with the housestaff. I will follow the patient along with you and provide further recommendations as necessary. If there are any questions, please do not hesitate to contact me at any time. Consult Acknowledgment - Thank you for your consult request.
--- NOTE | 2018-04-05 18:02 | RADIOLOGY REPORT ---
EXAMINATION: XR PORTABLE CHEST CLINICAL INFORMATION: Thoracentesis COMPARISON: Chest x-ray 03/29/2018, 04/05/2018. TECHNIQUE: Portable frontal view of the chest was obtained. FINDINGS: There is a large volume right pleural effusion nearly opacifying the entire right hemithorax. Small region of aeration remains at the apex of the right lung. The volume of this pleural effusion is similar to the chest x-ray of 04/05/2018. There is no pneumothorax. There is no left-sided pleural effusion. There is no midline shift. Clinical history is placement of a catheter. The right lung base is underpenetrated and the catheter is not well seen. The pigtail catheter though can be seen over the right lung base. IMPRESSION: Large volume right pleural effusion. There is no pneumothorax. Pigtail catheter projecting over the right lung base.
--- NOTE | 2018-04-05 19:56 | Admission Certification ---
Admission Certification Certification Statement - As attending physician, I certify that at the time of - admission, based on clinical presentation, severity of - symptoms, need for further diagnostic testing and - therapeutic interventions, and risk of adverse outcomes - without in-hospital treatment, in my clinical assessment, - this patient requires an acute hospital stay for a minimum - of two nights or longer. I have also considered psychsocial - factors such as support system, advanced age, financial - issues, cognitive issues, and failed out-patient treatments, - past re-admission history, safety of patient, and lack of - compliance as applicable. Specific rationale supporting this admission is: Large pleural effusion hypoxemia and shortness of breath
--- NOTE | 2018-04-05 19:59 | PN- Att Addend ---
Attending Addendum Attending Brief Note 73-year-old patient with diabetes mellitus, has been progressively short of breath for the last several days. Originally went to the clinic and was given treatments with no improvement. Patient on Thursday called my office, was sent for a chest x-ray which showed a very large pleural effusion and a questionable mass. Arrangements were made and was seen promptly by Dr. Coburn, and her office his O2 saturation was low, arrangements were made for him to come to the ER and be admitted. Patient had a thoracentesis a large amount of pleural fluid was drained and also chest tube in place. Patient immediately felt improved. Will monitor we will culture the fluids will get cytologies, will start antibiotic treatment, monitor his O2 saturations and follow-up the chest x-ray Current Medications Sig/Alli Start time Last Medication Dose Route Stop Time Status Admin Acetaminophen 650 MG Q6P PRN 04/05 1600 AC PO Aspirin Buffered 81 MG DAILY 04/06 900 AC PO Atorvastatin Calcium 20 MG DAILY 04/06 900 AC PO Azithromycin 250 MG 1700 04/06 170 AC PO Azithromycin 500 MG ONCE ONE 04/05 1630 DC 04/05 Sodium Chloride 250 ML IV 04/05 1729 1952 Ceftriaxone Sodium 1,000 MG 1700 04/05 1700 AC 04/05 IV 1825 Enoxaparin Sodium 40 MG DAILY 04/06 09 AC SC Fentanyl Citrate 0 .STK-MED ONE 04/05 1355 DC .ROUTE Furosemide 0 .STK-MED ONE 04/05 1112 DC IV Furosemide 40 MG ONCE ONE 04/05 1100 DC 04/05 IV 04/05 1101 1114 Insulin Aspart 0 TIDAC 04/05 1700 AC 04/05 SC 1825 Lisinopril 5 MG DAILY 04/06 09 AC PO Laboratory Tests 04/05/18 1426: Phlebotomy Draw Site RT CHEST TUBE, Pleural pH 7.28 04/05/18 1425: Fluid WBC 1333 H, Fld Total RBCs Counted 52375 H 04/05/18 1425: Fluid Glucose 124, Fluid Total Protein 4.3, Fluid LDH 795 04/05/18 1153: Urine Color YEL, Urine Clarity CLEAR, Urine pH 6.0, Ur Specific [place] 1.020, Urine Protein NEG, Urine Ketones NEG, Urine Nitrite NEG, Urine Bilirubin NEG, Urine Urobilinogen 0.2, Ur Leukocyte Esterase NEG, Ur Microscopic EXAM NOT REQUIRED, Urine Hemoglobin NEG, Urine Glucose NEG 04/05/18 1100: Anion Gap 13, Estimated GFR 59 L, BUN/Creatinine Ratio 31.7 H, Glucose 162 H, Hemoglobin A1c Pending, Calcium 8.3 L, Total Bilirubin 0.6, AST 39, ALT 52, Alkaline Phosphatase 143 H, Lactate Dehydrogenase 334, Troponin I < 0.01, Pro-B -Natriuretic Pept 319 H, Total Protein 5.8 L, Albumin 2.9 L, Globulin 2.9, Albumin/Globulin Ratio 1.0 L, PT 13.2 H, INR 1.21 H, APTT 28, CBC w Diff NO MAN DIFF REQ, RBC 4.90, MCV 82.4, MCH 27.3, MCHC 33.2, RDW 15.1 H, MPV 7.1 L, Gran % 83.0 H, Lymphocytes % 5.8 L, Monocytes % 10.7 H, Eosinophils % 0.4, Basophils % 0.1, Absolute Granulocytes 9.3 H, Absolute Lymphocytes 0.7 L, Absolute Monocytes 1.2 H, Absolute Eosinophils 0, Absolute Basophils 0 Microbiology 04/05 1915 URINE ROUT: Legionella Antigen - COMP 04/05 1915 URINE ROUT: Streptococcus pneumoniae Antigen (M - COMP Microbiology Date/Time Procedure - Status Source Growth 04/05 1915 Legionella Antigen - COMP URINE ROUT 04/05 1915 Streptococcus pneumoniae Antigen (M - COMP URINE ROUT 04/05 142 Body Fluid Culture - RES BODY FLUID 04/05 142 Gram Stain - RES BODY FLUID 04/05 1212 Body Fluid Culture - CAN BODY FLUID Cancelled: EDITED 04/05 121 Gram Stain - CAN BODY FLUID Cancelled: EDITED Vital Signs Date Time Temp Pulse Resp B/P B/P Pulse O2 O2 Flow FiO2 Mean Ox Delivery Rate 04/05 1725 Nasal 2.0L Cannula 04/05 1631 97.9 94 22 113/57 96 Room Air 04/05 1150 97.0 100 106/75 94 Nasal 3.0L Cannula 04/05 1115 97.0 94 16 104/58 94 Nasal 3.0L Cannula 04/05 1025 97 Nasal 2.0L Cannula 04/05 1025 98.0 109 26 107/73 92 Nasal 3.0L Cannula Also monitor his blood sugars
--- NOTE | 2018-04-05 22:30 | ECHOCARDIOGRAM REPORT ---
JOHNSON HICKS Age: 73 : 1945 Gender: M Exam Date: 04/05/2018 20:00 Exam Location: [address] [place] [address] Ht (in): 66 Wt (lb): 218 BSA: 2.19 BP: / Ordering Physician: Tracy Rene MD Referring Physician: Anjel Noble MD Technologist: Aydee Barton [facility] Room Number: 210-01 Indications: Shortness of breath Rhythm: Technical Quality: Fair FINDINGS Left Ventricle Left ventricular cavity size normal. Left ventricular wall thickness mildly increased. No obvious regional wall motion abnormalities. Left ventricular ejection fraction is estimated at > 55 %. Right Ventricle Normal right ventricular size and function. Right Atrium Right atrium not well visualized, grossly normal. Left Atrium Normal left atrial size. Mitral Valve Structurally normal mitral valve. Trace mitral regurgitation. Aortic Valve No aortic stenosis. Trileaflet aortic valve. Tricuspid Valve Structurally normal tricuspid valve. Mild tricuspid regurgitation. No evidence of pulmonary hypertension. Pulmonic Valve Pulmonic valve not well visualized, grossly normal. Pericardium No pericardial effusion. Possible pleural effusion. Correlate with clinical data. Great Vessels Normal size aortic root. CONCLUSIONS Left ventricular cavity size normal. Left ventricular wall thickness mildly increased. No obvious regional wall motion abnormalities. Left ventricular ejection fraction is estimated at > 55 %. Normal right ventricular size and function. No evidence of pulmonary hypertension. No pericardial effusion. Possible pleural effusion. Correlate with clinical data. Ej Del Valle M.D. (Electronically Signed) Final Date: 05 April 2018 22:25 MEASUREMENTS (Male / Female) Normal Values 2D ECHO LV Diastolic Diameter PLAX 4.3 cm 4.2 - 5.9 / 3.9 - 5.3 cm LV Systolic Diameter PLAX 1.9 cm 2.1 - 4.0 cm LV Fractional Shortening PLAX 55.8 % 25 - 46 % LV Ejection Fraction 2D Teich 86.6 % IVS Diastolic Thickness 1.4 cm LVPW Diastolic Thickness 1.3 cm LV Relative Wall Thickness 0.6 RV Internal Dim ED PLAX 3.6 cm 1.9 - 3.8 cm LVOT Diameter 2.2 cm Aortic Root Diameter 3.6 cm LA Systolic Diameter LX 2.9 cm 3.0 - 4.0 / 2.7 - 3.8 cm LA Volume 27.0 cm 18 - 58 / 22 - 52 cm Ascending Aorta Diameter 3.5 cm DOPPLER AV Peak Velocity 147.0 cm/s AV Peak Gradient 8.6 mmHg AV Mean Velocity 106.0 cm/s AV Mean Gradient 5.0 mmHg AV Velocity Time Integral 23.2 cm LVOT Peak Velocity 133.0 cm/s LVOT Peak Gradient 7.1 mmHg LVOT Mean Velocity 84.7 cm/s LVOT Mean Gradient 4.0 mmHg LVOT Velocity Time Integral 19.7 cm LVOT Stroke Volume 74.9 cm AV Area Cont Eq vti 3.2 cm AV Area Cont Eq pk 3.4 cm MV Peak Velocity 73.3 cm/s MV Peak Gradient 2.1 mmHg MV Mean Velocity 38.7 cm/s MV Mean Gradient 1.0 mmHg Mitral E Point Velocity 37.0 cm/s Mitral A Point Velocity 62.2 cm/s Mitral E to A Ratio 0.6 MV PHT Velocity 52.7 cm/s MV Deceleration [place] 235.0 cm/s MV Pressure Half Time 67.3 ms MV Area PHT 3.3 cm MV Deceleration Time 320.0 ms TR Peak Velocity 255.0 cm/s TR Peak Gradient 26.0 mmHg Right Atrial Pressure 5.0 mmHg Pulmonary Artery Systolic Pressure 31.0 mmHg Right Ventricular Systolic Pressure 31.0 mmHg PV Peak Velocity 90.9 cm/s PV Peak Gradient 3.3 mmHg PV Mean Velocity 64.9 cm/s PV Mean Gradient 2.0 mmHg PV Velocity Time Integral 14.2 cm LV E' Lateral Velocity 15.9 cm/s Mitral E to LV E' Lateral Ratio 2.3 LV E' Septal Velocity 5.7 cm/s Mitral E to LV E' Septal Ratio 6.5
[2018-04-05 23:35] VITALS: BP 107/59
--- NOTE | 2018-04-06 04:44 | PN- Housestaff ---
Subjective Follow-up For: sob s/p thoracocentesis Subjective: Patient was interviewed and examined at the bedside. No acute events overnight. The patient says he feels much relieved after the thoracocentesis. The chest tube still in place and actively draining. The patient denies fever, chills, nausea, vomiting, headchae, chest pain. Review of Systems Constitutional: Reports: see HPI. Objective Last 24 Hrs of Vital Signs/I&O Vital Signs Date Time Temp Pulse Resp B/P B/P Pulse O2 O2 Flow FiO2 Mean Ox Delivery Rate 04/09 0815 102 98/58 04/09 0800 90 Nasal 2.0L Cannula 04/09 0646 98.0 97 20 105/68 90 Nasal 2.0L Cannula 04/09 0000 91 Nasal 2.0L Cannula 04/08 2233 98.7 100 20 121/74 91 Nasal 2.0L Cannula 04/08 1924 92 Room Air Intake & Output 04/09 1600 04/09 0800 04/09 0000 Intake Total 110 250 Output Total 550 Balance -440 250 Intake, IV 10 10 Intake, Oral 100 240 Number 1 Bowel Movements Output, Urine 550 Physical Exam General Appearance: Alert, Oriented X3, Cooperative, Mild Distress Skin: No Rashes, No Breakdown Neck: Supple Cardiovascular: Regular Rate, Normal S1 Lungs: decreased air entry on the right side Abdomen: Normal Bowel Sounds, Soft Assessment/Plan Assessment: Mr Pan is a 73 yo M with a PMH of T2DM, BPH, GERD who presents with a 2-3 week history of progressively worsening shortness of breath worsening with exertion, associated with dizziness, trouble sleeping, decreased p.o. intake, productive cough, general malaise. He went for diagnostic and therapeutic thoracentesis in ED yestreday, which relieved his symptoms. Problem list 1.Right-sided pleural effusion s/p thoracentesis 2.Dyspnea 2/2 pleural effusion/COPD exacerbation 3.thrombocytosis with unclear etiology 4.PMH of GERD, BPH, HTN, HLD, T2DM, colonic polyps (tubular adenoma) PLAN 1.R sided pleural effusion -Went to IR yesterday for diagnostic/therapeutic tap; chest tube in place draining ~ serosanguinous fluid -Fluid sent for culture, cytology: -S/P Pigtail placement, draining ~ serosanguinous fluid. Post placement X-ray pending - chest CT in am -Pulm input appreciated. Will f/u reccs. -O2 for sats >92%, TRC and nebs as needed 2.Dyspnea 2/2 pleural effusion -Fluid studies pending; Prelimnary Gram stain reveals few WBCs, no organisms -On Ceftriaxone and Azithro, started after cultures sent -F/u sputum culture -ECHO: Findings were essentially normal with mildl increased left ventricular wall thickness, possible pleural effusion and ejection fraction estimated >55%. 3.Thrombocytosis -Will trend CBC 4.T2DM -ISS, accuchecks q6 -HbA1c ordered 5.Chronic med conditions -Continue home meds DVT PPx IV access CC3 Diet Full Code Problem List: 1. Hypoxia 2. Large pleural effusion 3. Hypotension Pain Ratin Pain Location: chest Pain Goal: Pain 4 or less Pain Plan: pathway Tomorrow's Labs & Rationales: cbc and bep
[2018-04-06 06:59] VITALS: BP 100/66
[2018-04-06 08:51] LABS: ABSOLUTE BASOPHIL COUNT 0 /CUMM (0.0-0.2); ABSOLUTE EOSINOPHIL COUNT 0.1 /CUMM (0.0-0.7); ABSOLUTE GRANULOCYTE CT 8.9 /CUMM (1.4-6.5); ABSOLUTE LYMPH COUNT 0.8 /CUMM (1.2-3.4); ABSOLUTE MONOCYTE COUNT 1.4 /CUMM (0.10-0.60); BASOPHIL % 0.1 % (0.0-2.0); EOSINOPHIL % 0.7 % (0-5); GRANULOCYTE % 79.2 % (42.2-75.2); HEMATOCRIT 38.9 % (42-52); MEAN CORPUSCULAR HGB CONC 32.5 G/DL (33.0-37.0); MEAN CORPUSCULAR VOLUME 83.2 FL (80.0-94.0); PLATELET COUNT 543 /CUMM (130-400); RBC DISTRIBUTION WIDTH 14.9 % (11.5-14.5); RED BLOOD CELL CT 4.68 /CUMM (4.70-6.10); WHITE BLOOD CELL COUNT 11.2 /CUMM (4.8-10.8)
--- NOTE | 2018-04-06 09:40 | PN- Att Addend ---
Attending Addendum Attending Brief Note Patient comfortable in bed, feeling better. Not short of breath. Chest tube still in place, still draining. Vital signs are stable no fever. White count 11,200. No other major changes on physical except is air movement is improved. Will continue present treatment follow-up chest x-ray await for pleural fluid results. Continue antibiotic therapy oxygen 24 TOTALS 04/06 0000 04/05 0000 Intake Total 490 Output Total 75 Balance 415 Intake, IV 250 Intake, Oral 240 Output, Urine 75 Patient 218 lb Weight Weight Reported by Patient Measurement Method Current Medications Sig/Alli Start time Last Medication Dose Route Stop Time Status Admin Acetaminophen 650 MG Q6P PRN 04/05 1600 AC PO Aspirin Buffered 81 MG DAILY 04/06 09 AC 04/06 PO 0819 Atorvastatin Calcium 20 MG DAILY 04/06 09 AC 04/06 PO 0819 Azithromycin 250 MG 1700 04/06 1700 AC PO Azithromycin 500 MG ONCE ONE 04/05 1630 DC 04/05 Sodium Chloride 250 ML IV 04/05 1729 1952 Ceftriaxone Sodium 1,000 MG 1700 04/05 1700 AC 04/05 IV 1825 Enoxaparin Sodium 40 MG DAILY 04/06 0900 AC 04/06 SC 0819 Fentanyl Citrate 0 .STK-MED ONE 04/05 1355 DC .ROUTE Furosemide 0 .STK-MED ONE 04/05 1112 DC IV Furosemide 40 MG ONCE ONE 04/05 1100 DC 04/05 IV 04/05 1101 1114 Insulin Aspart 0 TIDAC 04/05 1700 AC 04/05 SC 1825 Lisinopril 5 MG DAILY 04/06 09 AC 04/06 PO 0819 Laboratory Tests 04/06/18 0650: Anion Gap 12, Estimated GFR > 60, BUN/Creatinine Ratio 39.0 H, CBC w Diff NO MAN DIFF REQ, RBC 4.68 L, MCV 83.2, MCH 27.0, MCHC 32.5 L, RDW 14.9 H, MPV 8.0, Gran % 79.2 H, Lymphocytes % 7.3 L, Monocytes % 12.7 H, Eosinophils % 0.7, Basophils % 0.1, Absolute Granulocytes 8.9 H, Absolute Lymphocytes 0.8 L, Absolute Monocytes 1.4 H, Absolute Eosinophils 0.1, Absolute Basophils 0 04/05/18 1500: Fluid WBC Cancelled, Fld Total RBCs Counted Cancelled 04/05/18 1426: Phlebotomy Draw Site RT CHEST TUBE, Pleural pH 7.28 04/05/18 1425: Fluid WBC 1333 H, Fld Total RBCs Counted 63350 H 04/05/18 1425: Lymphocytes 43, % Normal PMNs 32, Misc Hematology Test , Fluid Glucose 124, Fluid Total Protein 4.3, Fluid LDH 795 04/05/18 1153: Urine Color YEL, Urine Clarity CLEAR, Urine pH 6.0, Ur Specific [place] 1.020, Urine Protein NEG, Urine Ketones NEG, Urine Nitrite NEG, Urine Bilirubin NEG, Urine Urobilinogen 0.2, Ur Leukocyte Esterase NEG, Ur Microscopic EXAM NOT REQUIRED, Urine Hemoglobin NEG, Urine Glucose NEG 04/05/18 1100: Anion Gap 13, Estimated GFR 59 L, BUN/Creatinine Ratio 31.7 H, Glucose 162 H, Hemoglobin A1c 6.5 H, Calcium 8.3 L, Total Bilirubin 0.6, AST 39, ALT 52, Alkaline Phosphatase 143 H, Lactate Dehydrogenase 334, Troponin I < 0.01, Pro-B -Natriuretic Pept 319 H, Total Protein 5.8 L, Albumin 2.9 L, Globulin 2.9, Albumin/Globulin Ratio 1.0 L, PT 13.2 H, INR 1.21 H, APTT 28, CBC w Diff NO MAN DIFF REQ, RBC 4.90, MCV 82.4, MCH 27.3, MCHC 33.2, RDW 15.1 H, MPV 7.1 L, Gran % 83.0 H, Lymphocytes % 5.8 L, Monocytes % 10.7 H, Eosinophils % 0.4, Basophils % 0.1, Absolute Granulocytes 9.3 H, Absolute Lymphocytes 0.7 L, Absolute Monocytes 1.2 H, Absolute Eosinophils 0, Absolute Basophils 0 Microbiology 04/05 1915 URINE ROUT: Legionella Antigen - COMP 04/05 1915 URINE ROUT: Streptococcus pneumoniae Antigen (M - COMP Microbiology Date/Time Procedure - Status Source Growth 04/05 1915 Legionella Antigen - COMP URINE ROUT 04/05 1915 Streptococcus pneumoniae Antigen (M - COMP URINE ROUT 04/05 1425 Body Fluid Culture - RES BODY FLUID 04/05 1425 Gram Stain - RES BODY FLUID 04/05 121 Body Fluid Culture - CAN BODY FLUID Cancelled: EDITED 04/05 1212 Gram Stain - CAN BODY FLUID Cancelled: EDITED Vital Signs Date Time Temp Pulse Resp B/P B/P Pulse O2 O2 Flow FiO2 Mean Ox Delivery Rate 04/06 0819 99 106/60 04/06 0659 98.4 92 20 100/66 93 Nasal 2.0L Cannula 04/05 2335 98.2 91 20 107/59 93 Nasal 2.0L Cannula 04/05 1725 Nasal 2.0L Cannula 04/05 1631 97.9 94 22 113/57 96 Room Air 04/05 1150 97.0 100 106/75 94 Nasal 3.0L Cannula 04/05 1115 97.0 94 16 104/58 94 Nasal 3.0L Cannula 04/05 1025 97 Nasal 2.0L Cannula 04/05 1025 98.0 109 26 107/73 92 Nasal 3.0L Cannula
--- NOTE | 2018-04-06 09:59 | PN- Pulmonary ---
Subjective HPI/Critical Care Issues: The patient is awake and alert. Reports feeling improved overall. He still has shortness of breath however this is better with previous drainage. The patient is afebrile. He is 93% on 2 L nasal cannula. Objective Current Medications: Current Medications Sig/Alli Start time Last Medication Dose Route Stop Time Status Admin Acetaminophen 650 MG Q6P PRN 04/05 1600 AC PO Aspirin Buffered 81 MG DAILY 04/06 09 AC 04/06 PO 0819 Atorvastatin Calcium 20 MG DAILY 04/06 09 AC 04/06 PO 0819 Azithromycin 250 MG 17004/06 1700 AC PO Azithromycin 500 MG ONCE ONE 04/05 1630 DC 04/05 Sodium Chloride 250 ML IV 04/05 1729 1952 Ceftriaxone Sodium 1,000 MG 04/05 1700 AC 04/05 IV 1825 Enoxaparin Sodium 40 MG DAILY 04/06 09 AC 04/06 SC 0819 Fentanyl Citrate 0 .STK-MED ONE 04/05 1355 DC .ROUTE Furosemide 0 .STK-MED ONE 04/05 1112 DC IV Furosemide 40 MG ONCE ONE 04/05 1100 DC 04/05 IV 04/05 1101 1114 Insulin Aspart 0 TIDAC 04/05 1700 AC 04/05 SC 1825 Lisinopril 5 MG DAILY 04/06 09 AC 04/06 PO 0819 Vital Signs & I&O Last 24 Hrs of Vitals and I&O: Vital Signs Date Time Temp Pulse Resp B/P B/P Pulse O2 O2 Flow FiO2 Mean Ox Delivery Rate 04/06 0819 99 106/60 04/06 0659 98.4 92 20 100/66 93 Nasal 2.0L Cannula 04/05 2335 98.2 91 20 107/59 93 Nasal 2.0L Cannula 04/05 1725 Nasal 2.0L Cannula 04/05 1631 97.9 94 22 113/57 96 Room Air 04/05 1150 97.0 100 106/75 94 Nasal 3.0L Cannula 04/05 1115 97.0 94 16 104/58 94 Nasal 3.0L Cannula 04/05 1025 97 Nasal 2.0L Cannula 04/05 1025 98.0 109 26 107/73 92 Nasal 3.0L Cannula Intake & Output 04/06 1600 04/06 0800 04/06 0000 Intake Total 240 490 Output Total Balance 240 490 Intake, IV 250 Intake, Oral 240 240 Patient 218 lb Weight Physical Exam General Appearance: alert, awake, moderate distress Head: atraumatic, normal appearance Eyes: Bilateral: PERRL. Neck: supple Respiratory: abscent breath sounds on the right Cardiovascular: regular rate/rhythm Gastrointestinal: normal bowel sounds, soft, non-tender Extremities: bilateral pitting edema Skin: intact, normal color, warm/dry Results Last 24 Hrs of Lab Results: Laboratory Tests 04/06/18 0650: Anion Gap 12, Estimated GFR > 60, BUN/Creatinine Ratio 39.0 H, CBC w Diff NO MAN DIFF REQ, RBC 4.68 L, MCV 83.2, MCH 27.0, MCHC 32.5 L, RDW 14.9 H, MPV 8.0, Gran % 79.2 H, Lymphocytes % 7.3 L, Monocytes % 12.7 H, Eosinophils % 0.7, Basophils % 0.1, Absolute Granulocytes 8.9 H, Absolute Lymphocytes 0.8 L, Absolute Monocytes 1.4 H, Absolute Eosinophils 0.1, Absolute Basophils 0 04/05/18 1500: Fluid WBC Cancelled, Fld Total RBCs Counted Cancelled 04/05/18 1426: Phlebotomy Draw Site RT CHEST TUBE, Pleural pH 7.28 04/05/18 1425: Fluid WBC 1333 H, Fld Total RBCs Counted 34156 H 04/05/18 1425: Lymphocytes 43, % Normal PMNs 32, Misc Hematology Test , Fluid Glucose 124, Fluid Total Protein 4.3, Fluid LDH 795 04/05/18 1153: Urine Color YEL, Urine Clarity CLEAR, Urine pH 6.0, Ur Specific [place] 1.020, Urine Protein NEG, Urine Ketones NEG, Urine Nitrite NEG, Urine Bilirubin NEG, Urine Urobilinogen 0.2, Ur Leukocyte Esterase NEG, Ur Microscopic EXAM NOT REQUIRED, Urine Hemoglobin NEG, Urine Glucose NEG 04/05/18 1100: Anion Gap 13, Estimated GFR 59 L, BUN/Creatinine Ratio 31.7 H, Glucose 162 H, Hemoglobin A1c 6.5 H, Calcium 8.3 L, Total Bilirubin 0.6, AST 39, ALT 52, Alkaline Phosphatase 143 H, Lactate Dehydrogenase 334, Troponin I < 0.01, Pro-B -Natriuretic Pept 319 H, Total Protein 5.8 L, Albumin 2.9 L, Globulin 2.9, Albumin/Globulin Ratio 1.0 L, PT 13.2 H, INR 1.21 H, APTT 28, CBC w Diff NO MAN DIFF REQ, RBC 4.90, MCV 82.4, MCH 27.3, MCHC 33.2, RDW 15.1 H, MPV 7.1 L, Gran % 83.0 H, Lymphocytes % 5.8 L, Monocytes % 10.7 H, Eosinophils % 0.4, Basophils % 0.1, Absolute Granulocytes 9.3 H, Absolute Lymphocytes 0.7 L, Absolute Monocytes 1.2 H, Absolute Eosinophils 0, Absolute Basophils 0 Impression/Plan Impression/Plan Impression/Plan: 1. Large right-sided exudative pleural effusion, rule out malignancy. 2. Rule out underlying postobstructive pneumonia, less likely. 3. History of type 2 diabetes. 4. GERD. Recommendations: * Follow-up cultures. * Continue ceftriaxone and azithromycin. * Continue drainage of pleural effusion. * Atrium to be changed by nursing. * Will continue drainage until the pleural cavity is dry, then we will pursue CT scanning of the chest. * Check a sputum cytology. * Will need to follow-up cytology for pleural effusion. * Follow-up echocardiogram results. * Oxygen for sats greater than 92%. * DVT prophylaxis at all times. * Plan discussed with housestaff. * Patient and his updated at the bedside.
--- NOTE | 2018-04-06 12:45 | RADIOLOGY REPORT ---
EXAMINATION: XR CHEST CLINICAL INFORMATION: Status post right-sided thoracentesis. For follow up. COMPARISON: Chest done on 04/05/2018. TECHNIQUE: 2 views, 3 images of the chest were obtained. FINDINGS: The size of the right-sided pleural effusion is significantly decreased since 04/05/2018. Diffuse heterogeneous airspace disease is noted within the entire right lung, may represent infiltrate, atelectasis, or combination thereof. There is right perihilar soft tissue fullness present, possibility of a mass in this region is not excluded. Follow up contrast-enhanced CT scan of the chest may be considered for further full detailed evaluation. The left hemithoracic lung field is clear. The cardiomediastinal silhouette is mildly enlarged. The visualized upper abdomen is unremarkable. IMPRESSION: Significant decrease in size of the right-sided pleural effusion as compared to prior study dated 04/05/2018. No evidence of any right-sided pneumothorax.
[2018-04-06 15:06] VITALS: BP 130/84
[2018-04-06 15:08] VITALS: BP 100/50
--- NOTE | 2018-04-06 16:47 | CT SCAN REPORT ---
EXAMINATION: CT CHEST WITHOUT CONTRAST CLINICAL INFORMATION: Follow-up right pleural effusion; draining chest tube. COMPARISON: CXR from 04/01/2018, 04/05/2018 at 04/06/2018. TECHNIQUE: Multidetector volumetric CT imaging of the chest was done. Axial MIP volume rendering provided. Sagittal and coronal reformatted images were obtained. DLP: 473 mGy-cm FINDINGS: LUNGS AND PLEURA: Trachea and central airways are widely patent and normal in caliber. A pigtail pleural change catheter is present within the posteroinferior aspect of the right hemithorax. Small residual right pleural effusion is present. The visceral and parietal pleura appear mildly thickened around the effusion; note that the pleura is not optimally evaluated on this noncontrast examination. There is volume loss of the right lung. There is curvilinear appearance of bronchovascular structures in the right middle lobe as they extend peripherally toward the pleura. Associated curvilinear opacities of rounded atelectasis or fibrosis extending to the pleura. Similar findings are seen in the anterior aspect of the right lower lobe. Mild atelectasis or consolidation in the dependent aspect of the right lower lobe. No lung nodule or mass. There is a trace left pleural effusion. MEDIASTINUM: The heart size is normal. Atherosclerotic calcification of coronary arteries and thoracic aorta without aortic aneurysm. Pulmonary arteries are normal in caliber. Trace pericardial effusion. The esophagus and thyroid gland are unremarkable. LYMPHATICS: No axillary or hilar lymphadenopathy. Within the mediastinum, right paratracheal lymph nodes measure up to 1 cm short axis dimension (i.e., borderline enlarged). UPPER ABDOMEN: There are diverticula of the partially visualized colon. Adrenal glands are normal. Mild haziness of peripancreatic fat requires additional clinical and laboratory correlation. Acute, mild pancreatitis is possible. A prominent portacaval lymph node is 1.2 cm AP and periportal lymph node 1.3 cm in short axis dimension. There appears to be a small, 0.6 cm cyst within hepatic segment . SKELETAL AND CHEST WALL: Old, healed fractures of right posterolateral sixth and seventh ribs. Mild spondylosis of the thoracic spine. No aggressive osseous lesions. IMPRESSION: 1. The right pleural effusion has significantly decreased after pigtail catheter drainage. The pleural effusion is probably chronic, and there appears to be mild thickening of visceral and parietal pleura around the effusion. There is mild volume loss of the right lung with curvilinear appearance of bronchovascular structures in the right middle lobe and anterior right lower lobe as they extend to the pleura. Associated opacities from rounded atelectasis and/or fibrosis extending to the pleura. 2. Trace left pleural effusion. 3. Borderline right paratracheal lymphadenopathy. 4. Atherosclerosis of coronary arteries and thoracic aorta without aortic aneurysm. 5. Mild lymphadenopathy in the periportal/portacaval region of the upper abdomen. Also, there is haziness of peripancreatic fat -- suspicious for pancreatitis.
[2018-04-06 21:16] VITALS: BP 108/74
[2018-04-07 06:01] VITALS: BP 74/48
--- NOTE | 2018-04-07 08:43 | PN- Housestaff ---
See Addendum Subjective Follow-up For: sob s/p thoracocentesis with chest tube in place Subjective: Patient was interviewed and examined on the bedside. The patient was hypotensive in the morning but has no complaints. He says he slept reasonably well and that his shortness of breath is greatly increased. He denies fever, chills, nausea, vomiting, headache or dizziness. Review of Systems Constitutional: Reports: see HPI. Objective Last 24 Hrs of Vital Signs/I&O Vital Signs Date Time Temp Pulse Resp B/P B/P Pulse O2 O2 Flow FiO2 Mean Ox Delivery Rate 04/09 0815 102 98/58 04/09 0800 90 Nasal 2.0L Cannula 04/09 0646 98.0 97 20 105/68 90 Nasal 2.0L Cannula 04/09 0000 91 Nasal 2.0L Cannula 04/08 2233 98.7 100 20 121/74 91 Nasal 2.0L Cannula 04/08 1924 92 Room Air Intake & Output 04/09 1600 04/09 0800 04/09 0000 Intake Total 110 250 Output Total 550 Balance -440 250 Intake, IV 10 10 Intake, Oral 100 240 Number 1 Bowel Movements Output, Urine 550 Physical Exam General Appearance: Alert, Oriented X3, Cooperative, Mild Distress Skin: No Rashes Neck: Supple Cardiovascular: Regular Rate, Normal S1, Normal S2 Lungs: decreased breath sounds on the right Abdomen: Normal Bowel Sounds, Soft, No Tenderness Assessment/Plan Assessment: Mr Pan is a 73 yo M with a PMH of T2DM, BPH, GERD who presents with a 2-3 week history of progressively worsening shortness of breath associated with dizziness, trouble sleeping, decreased p.o. intake, productive cough, general malaise, dyspnea on exertion. He went for diagnostic and therapeutic thoracentesis in ED, and is admitted for workup of his pleural effusion. He is s /p chest tube placement. He has minimal drainage forom his chest tube today. The patient desaturates to late 80s on room air. He had been hypotensive in the morning. However, he responded well to fluids. Problem list/Assessment/Hospital Course: 1.Right-sided pleural effusion s/p thoracocentesis 2.Dyspnea 2/2 pleural effusion/COPD exacerbation? (resolving) 3.thrombocytosis with unclear etiology 4.PMH of GERD, BPH, HTN, HLD, T2DM, colonic polyps (tubular adenoma) 1.R sided pleural effusion -Chest tube in place -Fluid sent for culture, cytology -S/P Pigtail placement. -Pulm input appreciated. Will f/u reccs. -O2 for sats falling intermittently in the late 80s., TRC and nebs as needed and supplemental oxygen for saturation> 92% 2.Dyspnea 2/2 pleural effusion -Cytology report pending -On Ceftriaxone and Azithro, started after cultures sent -F/u sputum culture #Thrombocytosis -Will trend CBC #T2DM -ISS, accuchecks q6 -HbA1c 6.5 #Chronic med conditions -Continue home meds DVT PPx IV access Tolerating CC3 Diet Problem List: 1. Hypotension 2. Large pleural effusion 3. Hypoxia Pain Ratin Pain Location: na Pain Goal: Remain pain free Pain Plan: na Tomorrow's Labs & Rationales: cbc and bep
[2018-04-07 09:44] VITALS: BP 88/48
--- NOTE | 2018-04-07 09:59 | PN- Att Addend ---
See Addendum Attending Addendum Attending Brief Note Patient sitting in the chair. is at the bedside. Patient states he is feeling better but tired and did not sleep well overnight Blood pressure was a little bit on the low side he got some IV fluids. Temp max 99 1. Chest tube is draining little this morning. His last x-ray looked improved. Appreciate pulmonary's input and recommendations. Will check when the chest tube can be removed and when we can start disposition plans Intake & Output 04/07 0400 04/06 1600 04/06 0400 04/05 1600 04/05 0400 Intake Total 330 740 490 Output Total 335 095 4994 75 Balance - 490 -75 Intake, IV 30 250 Intake, Oral 300 740 240 Number 1 0 Bowel Movements Output, Chest 25 2140 Tube Drainage Output, Urine 300 350 400 75 Patient 218 lb 218 lb Weight Weight Reported by Patient Measurement Method Current Medications Sig/Alli Start time Last Medication Dose Route Stop Time Status Admin Acetaminophen 650 MG .STK-MED ONE 04/06 1323 DC PO 04/06 1324 Acetaminophen 650 MG Q6P PRN 04/05 1600 AC 04/06 PO 1326 Albuterol Sulfate 3 ML Q4P PRN 04/06 1100 AC INH Aspirin Buffered 81 MG DAILY 04/06 09 AC 04/07 PO 0801 Atorvastatin Calcium 20 MG DAILY 04/06 0900 AC 04/07 PO 0801 Azithromycin 250 MG 1700 04/06 1700 AC 04/06 PO 1652 Ceftriaxone Sodium 1,000 MG 1700 04/05 1700 AC 04/06 IV 1652 Enoxaparin Sodium 40 MG DAILY 04/06 0900 AC 04/07 SC 0801 Insulin Aspart 0 TIDAC 04/05 1700 AC 04/07 SC 0808 Lisinopril 5 MG DAILY 04/06 09 AC 04/06 PO 0819 Patient Medication 1 ED ONE ONE 04/06 1615 DC Teaching ED 04/06 1616 Sodium Chloride 250 ML ONCE ONE 04/07 0845 DC 04/07 IV 04/07 0944 0845 Sodium Chloride 250 ML .[ONCE\] 04/07 0800 CAN IV Laboratory Tests 04/06/18 0650: Anion Gap 12, Estimated GFR > 60, BUN/Creatinine Ratio 39.0 H, Lipase 157, CBC w Diff NO MAN DIFF REQ, RBC 4.68 L, MCV 83.2, MCH 27.0, MCHC 32.5 L, RDW 14.9 H, MPV 8.0, Gran % 79.2 H, Lymphocytes % 7.3 L, Monocytes % 12.7 H, Eosinophils % 0.7, Basophils % 0.1, Absolute Granulocytes 8.9 H, Absolute Lymphocytes 0.8 L, Absolute Monocytes 1.4 H, Absolute Eosinophils 0.1, Absolute Basophils 0 04/05/18 1500: Fluid WBC Cancelled, Fld Total RBCs Counted Cancelled 04/05/18 1426: Phlebotomy Draw Site RT CHEST TUBE, Pleural pH 7.28 04/05/18 1425: Fluid WBC 1333 H, Fld Total RBCs Counted 51114 H 04/05/18 1425: Lymphocytes 43, % Normal PMNs 32, Misc Hematology Test , Fluid Glucose 124, Fluid Total Protein 4.3, Fluid LDH 795 04/05/18 1153: Urine Color YEL, Urine Clarity CLEAR, Urine pH 6.0, Ur Specific [place] 1.020, Urine Protein NEG, Urine Ketones NEG, Urine Nitrite NEG, Urine Bilirubin NEG, Urine Urobilinogen 0.2, Ur Leukocyte Esterase NEG, Ur Microscopic EXAM NOT REQUIRED, Urine Hemoglobin NEG, Urine Glucose NEG 04/05/18 1100: Anion Gap 13, Estimated GFR 59 L, BUN/Creatinine Ratio 31.7 H, Glucose 162 H, Hemoglobin A1c 6.5 H, Calcium 8.3 L, Total Bilirubin 0.6, AST 39, ALT 52, Alkaline Phosphatase 143 H, Lactate Dehydrogenase 334, Troponin I < 0.01, Pro-B -Natriuretic Pept 319 H, Total Protein 5.8 L, Albumin 2.9 L, Globulin 2.9, Albumin/Globulin Ratio 1.0 L, PT 13.2 H, INR 1.21 H, APTT 28, CBC w Diff NO MAN DIFF REQ, RBC 4.90, MCV 82.4, MCH 27.3, MCHC 33.2, RDW 15.1 H, MPV 7.1 L, Gran % 83.0 H, Lymphocytes % 5.8 L, Monocytes % 10.7 H, Eosinophils % 0.4, Basophils % 0.1, Absolute Granulocytes 9.3 H, Absolute Lymphocytes 0.7 L, Absolute Monocytes 1.2 H, Absolute Eosinophils 0, Absolute Basophils 0 Microbiology 04/05 1915 URINE ROUT: Legionella Antigen - COMP 04/05 1915 URINE ROUT: Streptococcus pneumoniae Antigen (M - COMP 04/05 142 BODY FLUID: Body Fluid Culture - RES 04/05 142 BODY FLUID: Gram Stain - RES 04/05 121 BODY FLUID: Body Fluid Culture - CAN Cancelled: EDITED 04/05 121 BODY FLUID: Gram Stain - CAN Cancelled: EDITED Microbiology 04/05 1915 URINE ROUT: Legionella Antigen - COMP 04/05 1915 URINE ROUT: Streptococcus pneumoniae Antigen (M - COMP 04/05 142 BODY FLUID: Body Fluid Culture - RES 04/05 142 BODY FLUID: Gram Stain - RES 04/05 121 BODY FLUID: Body Fluid Culture - CAN Cancelled: EDITED 04/05 121 BODY FLUID: Gram Stain - CAN Cancelled: EDITED Vital Signs Date Time Temp Pulse Resp B/P B/P Pulse O2 O2 Flow FiO2 Mean Ox Delivery Rate 04/07 0944 88/48 04/07 0801 84 74/48 04/07 0800 92 Nasal 2.0L Cannula 04/07 0601 98.6 84 20 74/48 92 Nasal 2.0L Cannula 04/07 0000 Nasal 2.0L Cannula 04/06 2116 98.3 100 18 108/74 94 Nasal 2.0L Cannula 04/06 1937 96 Nasal 2.0L Cannula 04/06 1600 95 Nasal 2.0L Cannula 04/06 1508 99.1 80 20 100/50 94 Nasal Cannula 04/06 1506 97.4 82 20 130/84 97 Room Air 04/06 1051 Nasal 2.0L Cannula
--- NOTE | 2018-04-07 10:43 | PN- Pulmonary ---
Subjective HPI/Critical Care Issues: Overnight events noted. The patient is awake and alert, appears comfortable. Objective Current Medications: Current Medications Sig/Alli Start time Last Medication Dose Route Stop Time Status Admin Acetaminophen 650 MG .STK-MED ONE 04/06 1323 DC PO 04/06 1324 Acetaminophen 650 MG Q6P PRN 04/05 1600 AC 04/06 PO 1326 Albuterol Sulfate 3 ML Q4P PRN 04/06 1100 AC INH Aspirin Buffered 81 MG DAILY 04/06 0900 AC 04/07 PO 0801 Atorvastatin Calcium 20 MG DAILY 04/06 0900 AC 04/07 PO 0801 Azithromycin 250 MG 1700 04/06 1700 AC 04/06 PO 1652 Ceftriaxone Sodium 1,000 MG 1700 04/05 1700 AC 04/06 IV 1652 Enoxaparin Sodium 40 MG DAILY 04/06 0900 AC 04/07 SC 0801 Insulin Aspart 0 TIDAC 04/05 1700 AC 04/07 SC 0808 Lisinopril 5 MG DAILY 04/06 0900 AC 04/06 PO 0819 Patient Medication 1 ED ONE ONE 04/06 1615 DC Teaching ED 04/06 1616 Sodium Chloride 250 ML ONCE ONE 04/07 0845 DC 04/07 IV 04/07 0944 0845 Sodium Chloride 250 ML .[ONCE\] 04/07 0800 CAN IV Vital Signs & I&O Last 24 Hrs of Vitals and I&O: Vital Signs Date Time Temp Pulse Resp B/P B/P Pulse O2 O2 Flow FiO2 Mean Ox Delivery Rate 04/07 0944 88/48 04/07 0801 84 74/48 04/07 0800 92 Nasal 2.0L Cannula 04/07 0601 98.6 84 20 74/48 92 Nasal 2.0L Cannula 04/07 0000 Nasal 2.0L Cannula 04/06 2116 98.3 100 18 108/74 94 Nasal 2.0L Cannula 04/06 1937 96 Nasal 2.0L Cannula 04/06 1600 95 Nasal 2.0L Cannula 04/06 1508 99.1 80 20 100/50 94 Nasal Cannula 04/06 1506 97.4 82 20 130/84 97 Room Air 04/06 1051 Nasal 2.0L Cannula Intake & Output 04/07 1600 04/07 0800 08 0000 Intake Total 330 Output Total 300 375 Balance -300 -45 Intake, IV 30 Intake, Oral 300 Number 1 Bowel Movements Output, Chest 25 Tube Drainage Output, Urine 300 350 Physical Exam General Appearance: alert, awake, moderate distress Head: atraumatic, normal appearance Eyes: Bilateral: PERRL. Neck: supple Respiratory: abscent breath sounds on the right Cardiovascular: regular rate/rhythm Gastrointestinal: normal bowel sounds, soft, non-tender Extremities: bilateral pitting edema Skin: intact, normal color, warm/dry Impression/Plan Impression/Plan Impression/Plan: 1. Large right-sided exudative pleural effusion, rule out malignancy. 2. Rule out underlying postobstructive pneumonia, less likely. 3. History of type 2 diabetes. 4. GERD. Recommendations: * Check a CT scan with IV contrast this morning. * Will review results with CT surgery and formulate a plan of care based on results. * If cultures remain negative, discontinue antibiotics. * Continue drainage of pleural effusion. * Check a sputum cytology. * Will need to follow-up cytology for pleural effusion -discussed with pathology , still pending. * Oxygen for sats greater than 92%. * DVT prophylaxis at all times. * Plan discussed with house staff.
[2018-04-07 14:06] VITALS: BP 93/57
--- NOTE | 2018-04-07 16:05 | CT SCAN REPORT ---
EXAMINATION: CT CHEST WITH CONTRAST CLINICAL INFORMATION: Pleural effusion, status post pigtail insertion. Presumptive diagnosis of malignancy and postobstructive pneumonia. COMPARISON: CT scan of the chest dated 04/06/2018. TECHNIQUE: Multidetector volumetric CT imaging of the chest was obtained after the administration of 95 mL of intravenous Optiray 320. Sagittal and coronal reformations were obtained. DLP: 567.74 mGy-cm. FINDINGS: LUNGS/PLEURA: There is a small simple appearing left-sided posterior layering pleural effusion, extending superiorly to the subcarinal level. On the right side, there are some loculations to the pleural fluid, and the overall volume of the pleural fluid is slightly larger than on the left side. Compared to the prior exam, the volume of fluid has remained stable. No significant pleural thickening or enhancement is seen. There is a pleural pigtail catheter seen along the right lateral lower pleural space, unchanged. There is again seen volume loss in the right middle lobe with a swirling appearance of the bronchovascular structures extending from the hilum to the periphery, suspicious for rounded atelectasis. The central airways viral mildly narrowed, remain patent. There is also patchy atelectatic change in the right lower lobe and platelike atelectasis anteriorly within the right upper lobe. There is a tiny 3 mm solid noncalcified pleural-based nodule in the lingula (series 4, image 289), unchanged from the prior exam. Additional 5 mm solid noncalcified nodule is seen centrally within the left lower lobe (series 4, image 332). A calcified granuloma seen in the left lower lobe (series 4, image 338). No other definite lung nodule or mass is seen in the left lung. LYMPHATIC STRUCTURES: Again seen are multiple subcentimeter sized bilateral axillary lymph nodes with surrounding slight haziness in the fat, nonspecific. Borderline sized right upper paratracheal lymph node (series 2, image 21) is seen, measuring 1 cm in short axis, unchanged. No other mediastinal adenopathy is seen. Evaluation of the right aimee is limited due to volume averaging with the adjacent lung consolidation of pleural fluid. There appears to be mild right infrahilar adenopathy, measuring up to 1.1 cm in short axis (series 2, image 31) some soft tissue thickening is also seen extending along the right middle lobe and right lower lobe central airways, unchanged from prior exam. Again seen are small periportal and borderline enlarged 1.0 cm portacaval lymph node (series 2, image 63). CARDIOVASCULAR STRUCTURES: Aortic and heart size normal. Trace pericardial effusion. Moderate three-vessel coronary artery calcifications. Moderate aortic and great vessel calcifications. UPPER ABDOMEN: There is extensive peripancreatic edema. There is a 0.5 cm low-attenuation mass in hepatic segment 6 (series 2, image 62), too small to further characterize and unchanged from prior exam. Included portions of the solid organs in the upper abdomen within normal limits. OSSEOUS STRUCTURES: Moderate vertebral endplate spurring is seen throughout the thoracic spine. No suspicious focal findings. IMPRESSION: 1. Small loculated right-sided pleural effusion is seen, slightly larger when compared to 04/06/2018. No definite pleural thickening or nodularity or abnormal enhancement is seen. 2. Persistent volume loss throughout the right lung with findings in the right middle lobe suggestive of rounded atelectasis and with findings in the right lower lobe consistent with dependent atelectasis and findings in the right upper lobe consistent with platelike atelectasis. The central airways are narrowed but patent and no endobronchial mass or centrally obstructing mass is seen. 3. No significant change in borderline size right upper paratracheal lymph node and in right infrahilar lymph node. No significant change in periportal and portacaval lymph nodes. 4. Stable small left-sided pleural effusion and trace pericardial effusion. 5. Prominent peripancreatic fat stranding is seen, highly suspicious for acute pancreatitis. Close clinical correlation is requested. 6. Moderate three-vessel coronary artery calcifications. 7. Indeterminate subcentimeter hepatic mass, unchanged from recent prior exam.
[2018-04-07 22:54] VITALS: BP 123/64
[2018-04-08 07:11] VITALS: BP 108/64
--- NOTE | 2018-04-08 07:16 | PN- Housestaff ---
See Addendum Subjective Follow-up For: shortness of breath s/p thoracoentesis Subjective: Patient was examined at bedside today. No acute events overnight. The patient does not have any complaints. He says he slept well. He reports he has had significant improvement in his symptoms. Denies fever, chills, SOB, chest pain, nausea or vomiting. Review of Systems Constitutional: Reports: see HPI. Objective Last 24 Hrs of Vital Signs/I&O Vital Signs Date Time Temp Pulse Resp B/P B/P Pulse O2 O2 Flow FiO2 Mean Ox Delivery Rate 04/08 1406 93 Room Air Room Air 04/08 1339 107/58 04/08 1150 102 92/54 04/08 1145 93 Room Air 04/08 0950 91 88/54 04/08 0711 97.8 99 20 108/64 92 Nasal 2.0L Cannula 04/08 0000 93 Nasal 2.0L Cannula 04/07 2254 99.3 100 20 123/64 93 Nasal 2.0L Cannula 04/07 1855 92 Nasal 2.0L Cannula 04/07 1600 96 Nasal 2.0L Cannula Intake & Output 04/08 1600 04/08 0800 04/08 0000 Intake Total 240 240 Output Total 6 Balance 234 240 Intake, Oral 240 240 Output, Chest 6 Tube Drainage Physical Exam General Appearance: Alert, Oriented X3, Cooperative, No Acute Distress Skin: No Rashes Lungs: decreased breath sounds on the right side Abdomen: Soft Extremities: pedal edema + Assessment/Plan Assessment: Mr Pan is a 73 yo M with a PMH of T2DM, BPH, GERD who presents with a 2-3 week history of progressively worsening shortness of breath associated with dizziness, trouble sleeping, decreased p.o. intake, productive cough, general malaise, dyspnea on exertion. He went for diagnostic and therapeutic thoracentesis in ED, and is admitted for workup of his pleural effusion. He is s /p chest tube placement. He has minimal drainage forom his chest tube today. The patient desaturates to late 80s on room air. He has been having episodes of hypotension since yesterday wherein his systolic bp dropped down to as low as 75mm Hg. However, he responds well to fluids. Problem list/Assessment/Hospital Course: 1.Right-sided pleural effusion s/p thoracocentesis 2.Dyspnea 2/2 pleural effusion/COPD exacerbation? (resolving) 3.thrombocytosis with unclear etiology 4.PMH of GERD, BPH, HTN, HLD, T2DM, colonic polyps (tubular adenoma) 1.R sided pleural effusion -Went to IR for diagnostic/therapeutic tap; chest tube in place draining minimal fluid tody -Fluid sent for culture, cytology -S/P Pigtail placement. -Potential chest CT in am -Pulm input appreciated. Will f/u reccs. -O2 for sats falling intermittently in the late 80s., TRC and nebs as needed -Patient went to Radiology for drainage of loculated fluid and take out the pigtail 2.Dyspnea 2/2 pleural effusion -Cytology report pending -On Ceftriaxone and Azithro, started after cultures sent -F/u sputum culture -ECHO findings essentially normal with EF at >55% #Thrombocytosis -Will trend CBC #T2DM -ISS, accuchecks q6 -HbA1c 6.5 #Chronic med conditions -Continue home meds DVT PPx IV access Tolerating CC3 Diet Problem List: 1. Large pleural effusion 2. Hypoxia 3. Hypotension Pain Ratin Pain Location: na Pain Goal: Pain 4 or less Pain Plan: pathway Tomorrow's Labs & Rationales: na
[2018-04-08 08:25] LABS: ABSOLUTE BASOPHIL COUNT 0 /CUMM (0.0-0.2); ABSOLUTE EOSINOPHIL COUNT 0.1 /CUMM (0.0-0.7); ABSOLUTE GRANULOCYTE CT 11.1 /CUMM (1.4-6.5); ABSOLUTE LYMPH COUNT 0.8 /CUMM (1.2-3.4); ABSOLUTE MONOCYTE COUNT 1.4 /CUMM (0.10-0.60); BASOPHIL % 0.2 % (0.0-2.0); EOSINOPHIL % 0.4 % (0-5); HEMATOCRIT 38.1 % (42-52); MEAN CORPUSCULAR HGB 27.1 PG (27.0-31.0); MEAN CORPUSCULAR HGB CONC 33.4 G/DL (33.0-37.0); MEAN CORPUSCULAR VOLUME 81.3 FL (80.0-94.0); PLATELET COUNT 477 /CUMM (130-400); RBC DISTRIBUTION WIDTH 14.9 % (11.5-14.5); RED BLOOD CELL CT 4.68 /CUMM (4.70-6.10); WHITE BLOOD CELL COUNT 13.4 /CUMM (4.8-10.8)
[2018-04-08 09:24] LABS: GRANULOCYTE % 83.1 % (42.2-75.2)
[2018-04-08 09:50] VITALS: BP 88/54
--- NOTE | 2018-04-08 10:01 | PN- Pulmonary ---
Subjective HPI/Critical Care Issues: The patient is awake and alert. He reports feeling improved overall. There were no overnight events reported. He is afebrile. Objective Current Medications: Current Medications Sig/Alli Start time Last Medication Dose Route Stop Time Status Admin Acetaminophen 650 MG Q6P PRN 04/05 1600 AC 04/06 PO 1326 Albuterol Sulfate 3 ML Q4P PRN 04/06 1100 AC INH Aspirin Buffered 81 MG DAILY 04/06 900 AC 04/08 PO 0946 Atorvastatin Calcium 20 MG DAILY 04/06 900 AC 04/08 PO 0951 Azithromycin 250 MG 04/06 170 AC 04/07 PO 1739 Ceftriaxone Sodium 1,000 MG 04/05 170 AC 04/07 IV 1739 Enoxaparin Sodium 40 MG DAILY 04/06 900 AC 04/08 SC 0950 Insulin Aspart 0 TIDAC 04/05 1700 AC 04/07 SC 1236 Lisinopril 5 MG DAILY 04/06 900 AC 04/06 PO 0819 Vital Signs & I&O Last 24 Hrs of Vitals and I&O: Vital Signs Date Time Temp Pulse Resp B/P B/P Pulse O2 O2 Flow FiO2 Mean Ox Delivery Rate 04/08 711 97.8 99 20 108/64 92 Nasal 2.0L Cannula 04/08 0000 93 Nasal 2.0L Cannula 04/07 2254 99.3 100 20 123/64 93 Nasal 2.0L Cannula 04/07 1855 92 Nasal 2.0L Cannula 04/07 1600 96 Nasal 2.0L Cannula 04/07 1406 98.9 98 16 93/57 95 Nasal 2.0L Cannula Intake & Output 04/08 0800 04/08 0000 Intake Total 240 240 Output Total 6 Balance 234 240 Intake, Oral 240 240 Output, Chest 6 Tube Drainage Physical Exam General Appearance: alert, awake, no distress Head: atraumatic, normal appearance Eyes: Bilateral: PERRL. Neck: supple Respiratory: abscent breath sounds on the right Cardiovascular: regular rate/rhythm Gastrointestinal: normal bowel sounds, soft, non-tender Extremities: bilateral pitting edema Skin: intact, normal color, warm/dry Results Last 24 Hrs of Lab Results: Laboratory Tests 04/08/18 0705: Anion Gap 11, Estimated GFR 54 L, BUN/Creatinine Ratio 46.2 H, CBC w Diff NO MAN DIFF REQ, RBC 4.68 L, MCV 81.3, MCH 27.1, MCHC 33.4, RDW 14.9 H, MPV 8.0, Gran % 83.1 H, Lymphocytes % 6.2 L, Monocytes % 10.1 H, Eosinophils % 0.4, Basophils % 0.2, Absolute Granulocytes 11.1 H, Absolute Lymphocytes 0.8 L, Absolute Monocytes 1.4 H, Absolute Eosinophils 0.1, Absolute Basophils 0 Impression/Plan Impression/Plan Impression/Plan: 1. Large right-sided exudative pleural effusion, rule out malignancy. 2. Rule out underlying postobstructive pneumonia, less likely. 3. History of type 2 diabetes. 4. GERD. Recommendations: * US guided thoracentesis to be done by IR with possible removal of Pigtail catheter? Dr. Benson aware of patient's case. * Complete antibiotic course. * Check a sputum cytology. * Will need to follow-up cytology for pleural effusion -discussed with pathology , still pending. * Oxygen for sats greater than 92%. * DVT prophylaxis at all times. * Plan discussed with house staff.
--- NOTE | 2018-04-08 11:40 | PN- Att Addend ---
Attending Addendum Attending Brief Note Patient sitting in the chair. At this moment he is on room air. Monitoring O2 saturations they are little low between 88 and 90 but when he takes a deep breath goes up to 92% on room air. Vital signs are stable temp max 99 2. No new changes on physical. Appreciate Dr. Coburn's input and recommendations. Patient is going down to the x-ray department to have drainage of the loculated fluid and take out the pigtail. Cytology results are still pending Intake & Output 04/08 1600 04/07 0400 04/06 1600 04/06 0400 Intake Total 240 240 950 330 740 490 Output Total 6 005 012 7684 Balance 234 240 490 Intake, IV 30 250 Intake, Oral 240 240 950 300 740 240 Number 1 0 Bowel Movements Output, Chest 6 5 25 2140 Tube Drainage Output, Urine 650 350 400 Patient 218 lb Weight Current Medications Sig/Alli Start time Last Medication Dose Route Stop Time Status Admin Acetaminophen 650 MG Q6P PRN 04/05 1600 AC 04/06 PO 1326 Albuterol Sulfate 3 ML Q4P PRN 04/06 1100 AC INH Aspirin Buffered 81 MG DAILY 04/06 09 AC 04/08 PO 0946 Atorvastatin Calcium 20 MG DAILY 04/06 09 AC 04/08 PO 0951 Azithromycin 250 MG 1700 04/06 1700 AC 04/07 PO 1739 Ceftriaxone Sodium 1,000 MG 04/05 1700 AC 04/07 IV 1739 Enoxaparin Sodium 40 MG DAILY 04/06 09 AC 04/08 SC 0950 Insulin Aspart 0 TIDAC 04/05 1700 AC 04/07 SC 1236 Lisinopril 5 MG DAILY 04/06 09 AC 04/06 PO 0819 Sodium Chloride 250 ML BOLUS ONE 04/08 1115 AC IV 04/08 1214 Laboratory Tests 04/08/18 0705: Anion Gap 11, Estimated GFR 54 L, BUN/Creatinine Ratio 46.2 H, CBC w Diff NO MAN DIFF REQ, RBC 4.68 L, MCV 81.3, MCH 27.1, MCHC 33.4, RDW 14.9 H, MPV 8.0, Gran % 83.1 H, Lymphocytes % 6.2 L, Monocytes % 10.1 H, Eosinophils % 0.4, Basophils % 0.2, Absolute Granulocytes 11.1 H, Absolute Lymphocytes 0.8 L, Absolute Monocytes 1.4 H, Absolute Eosinophils 0.1, Absolute Basophils 0 04/06/18 0650: Anion Gap 12, Estimated GFR > 60, BUN/Creatinine Ratio 39.0 H, Lipase 157, CBC w Diff NO MAN DIFF REQ, RBC 4.68 L, MCV 83.2, MCH 27.0, MCHC 32.5 L, RDW 14.9 H, MPV 8.0, Gran % 79.2 H, Lymphocytes % 7.3 L, Monocytes % 12.7 H, Eosinophils % 0.7, Basophils % 0.1, Absolute Granulocytes 8.9 H, Absolute Lymphocytes 0.8 L, Absolute Monocytes 1.4 H, Absolute Eosinophils 0.1, Absolute Basophils 0 04/05/18 1500: Fluid WBC Cancelled, Fld Total RBCs Counted Cancelled 04/05/18 1426: Phlebotomy Draw Site RT CHEST TUBE, Pleural pH 7.28 04/05/18 1425: Fluid WBC 1333 H, Fld Total RBCs Counted 94398 H 04/05/18 1425: Lymphocytes 43, % Normal PMNs 32, Misc Hematology Test , Fluid Glucose 124, Fluid Total Protein 4.3, Fluid LDH 795 04/05/18 1153: Urine Color YEL, Urine Clarity CLEAR, Urine pH 6.0, Ur Specific [place] 1.020, Urine Protein NEG, Urine Ketones NEG, Urine Nitrite NEG, Urine Bilirubin NEG, Urine Urobilinogen 0.2, Ur Leukocyte Esterase NEG, Ur Microscopic EXAM NOT REQUIRED, Urine Hemoglobin NEG, Urine Glucose NEG Microbiology 04/05 1915 URINE ROUT: Legionella Antigen - COMP 04/05 1915 URINE ROUT: Streptococcus pneumoniae Antigen (M - COMP 04/05 1425 BODY FLUID: Body Fluid Culture - COMP 04/05 1425 BODY FLUID: Gram Stain - COMP 04/05 1212 BODY FLUID: Body Fluid Culture - CAN Cancelled: EDITED 04/05 1212 BODY FLUID: Gram Stain - CAN Cancelled: EDITED Microbiology 04/05 1915 URINE ROUT: Legionella Antigen - COMP 04/05 1915 URINE ROUT: Streptococcus pneumoniae Antigen (M - COMP 04/05 142 BODY FLUID: Body Fluid Culture - COMP 04/05 142 BODY FLUID: Gram Stain - COMP 04/05 121 BODY FLUID: Body Fluid Culture - CAN Cancelled: EDITED 04/05 121 BODY FLUID: Gram Stain - CAN Cancelled: EDITED Vital Signs Date Time Temp Pulse Resp B/P B/P Pulse O2 O2 Flow FiO2 Mean Ox Delivery Rate 04/08 0950 91 88/54 04/08 0711 97.8 99 20 108/64 92 Nasal 2.0L Cannula 04/08 0000 93 Nasal 2.0L Cannula 04/07 2254 99.3 100 20 123/64 93 Nasal 2.0L Cannula 04/07 1855 92 Nasal 2.0L Cannula 04/07 1600 96 Nasal 2.0L Cannula 04/07 1406 98.9 98 16 93/57 95 Nasal 2.0L Cannula WBCs up a little bit today.
[2018-04-08 11:50] VITALS: BP 92/54
[2018-04-08 13:39] VITALS: BP 107/58
--- NOTE | 2018-04-08 16:03 | RADIOLOGY REPORT ---
EXAMINATION:\H\ \N\XR CHEST CLINICAL INFORMATION: Status post right-sided thoracentesis and removal of right-sided pleural drain. COMPARISON: Chest CT 04/07/2018 and 04/06/2018. Chest x-ray 04/06/2018 TECHNIQUE: Frontal view of the chest was obtained. FINDINGS: No pneumothorax. Interval removal of right-sided chest tube. Persistent right fissural thickening and prominent of the lateral pleura suggesting mild residual pleural fluid. Patchy opacities projecting over the right hemithorax consistent with primarily atelectasis. The left hemithorax is well aerated. IMPRESSION: No pneumothorax.
--- NOTE | 2018-04-08 16:46 | ULTRASOUND REPORT ---
PROCEDURE: 1. Thoracentesis 2. Right pleural drain removal CLINICAL INFORMATION: Pleural Effusion COMPARISON: Chest CT 04/07/2018 and 04/06/2018 TECHNIQUE: Indirect ultrasound guided thoracentesis using a 5 [place] Yueh catheter. FINDINGS: Informed consent was obtained from the patient prior to the procedure. During this process, the procedure alternatives were explained, along with the intended outcome and benefits. The risks of the procedure, as well as the risk of not doing the procedure, was discussed. The patient was given the opportunity to ask questions regarding the procedure and appeared competent to make medical decisions. A signed consent form which documents this discussion was placed in the medical record. A timeout procedure was performed. Ultrasound evaluation of the chest for pleural fluid was performed. A small residual pleural effusion was noted within the posterior midline right pleural space. This was consistent with cross-sectional imaging findings from yesterday . Using standard interventional and sterile techniques, lidocaine was used to anesthetize the region. A 5 [place] Yueh catheter was introduced into the right pleural fluid using standard safety needle technique. Approximately 240 mL of thin, serosanguineous, nonclotting fluid was removed using manual aspiration. The catheter was then removed. Good hemostasis was achieved. Dermabond was placed. Ultrasound imaging demonstrated complete resolution of this loculated pleural effusion. Existing right-sided pleural drain was attached to a catheter and several attempts were made to aspirate more fluid, however, all these were unsuccessful. Ultrasound imaging in this region demonstrated no residual fluid. For this reason, the retaining suture was cut and the pleural catheter was removed in its entirety using gentle pressure. A sterile dressing was placed. The patient tolerated the procedure well. The patient was discharged from the department in stable condition. Patient scheduled for post procedure followup x-ray. COMPLICATIONS: None. IMPRESSION: 1. Successful ultrasound-guided thoracentesis of loculated posterior right pleural effusion yielding 240 mL. 2. Successful removal of right-sided pleural drainage catheter.
[2018-04-08 22:33] VITALS: BP 121/74
[2018-04-09 06:46] VITALS: BP 105/68
[2018-04-09 08:01] LABS: ABSOLUTE BASOPHIL COUNT 0 /CUMM (0.0-0.2); ABSOLUTE EOSINOPHIL COUNT 0 /CUMM (0.0-0.7); ABSOLUTE GRANULOCYTE CT 10.8 /CUMM (1.4-6.5); ABSOLUTE LYMPH COUNT 0.7 /CUMM (1.2-3.4); ABSOLUTE MONOCYTE COUNT 1.4 /CUMM (0.10-0.60); BASOPHIL % 0.1 % (0.0-2.0); EOSINOPHIL % 0.3 % (0-5); HEMATOCRIT 34.3 % (42-52); MEAN CORPUSCULAR HGB 27.3 PG (27.0-31.0); MEAN CORPUSCULAR HGB CONC 33.2 G/DL (33.0-37.0); MEAN CORPUSCULAR VOLUME 82.2 FL (80.0-94.0); PLATELET COUNT 466 /CUMM (130-400); RBC DISTRIBUTION WIDTH 14.9 % (11.5-14.5); RED BLOOD CELL CT 4.17 /CUMM (4.70-6.10)
--- NOTE | 2018-04-09 08:06 | PN- Pulmonary ---
Subjective HPI/Critical Care Issues: The patient underwent ultrasound-guided thoracentesis with 250 mL drained by IR. The pigtail catheter has been removed as well. Repeat analysis of the fluid was not sent. Cytology is pending. The patient continues to require supplemental oxygen. Objective Current Medications: Current Medications Sig/Alli Start time Last Medication Dose Route Stop Time Status Admin Acetaminophen 650 MG Q6P PRN 04/05 1600 AC 04/06 PO 1326 Albuterol Sulfate 3 ML Q4P PRN 04/06 1100 AC INH Aspirin Buffered 81 MG DAILY 04/06 09 AC 04/08 PO 0946 Atorvastatin Calcium 20 MG DAILY 04/06 09 AC 04/08 PO 0951 Azithromycin 250 MG 1700 04/06 1700 DC 04/07 PO 1739 Calcium Carbonate 500 MG ONCE ONE 04/08 2145 DC 04/08 PO 04/08 2146 2204 Ceftriaxone Sodium 1,000 MG 04/05 1700 DC 04/07 IV 1739 Enoxaparin Sodium 40 MG DAILY 04/06 09 AC 04/08 SC 0950 Insulin Aspart 0 TIDAC 04/05 1700 AC 04/08 SC 1857 Lisinopril 5 MG DAILY 04/06 09 AC 04/06 PO 0819 Patient Medication 1 ED ONE ONE 04/08 1430 DC Teaching ED 04/08 1431 Sodium Chloride 250 ML BOLUS ONE 04/08 1115 DC 04/08 IV 04/08 1214 1153 Vital Signs & I&O Last 24 Hrs of Vitals and I&O: Vital Signs Date Time Temp Pulse Resp B/P B/P Pulse O2 O2 Flow FiO2 Mean Ox Delivery Rate 04/09 0646 98.0 97 20 105/68 90 Nasal 2.0L Cannula 04/09 0000 91 Nasal 2.0L Cannula 04/08 2233 98.7 100 20 121/74 91 Nasal 2.0L Cannula 04/08 1924 92 Room Air 04/08 1406 93 Room Air Room Air 04/08 1339 107/58 04/08 1150 102 92/54 04/08 1145 93 Room Air 04/08 0950 91 88/54 Intake & Output 04/09 1600 / 0800 04/09 0000 Intake Total 110 250 Output Total 550 Balance -440 250 Intake, IV 10 10 Intake, Oral 100 240 Number 1 Bowel Movements Output, Urine 550 Physical Exam General Appearance: alert, awake, no distress Head: atraumatic, normal appearance Eyes: Bilateral: PERRL. Neck: supple Respiratory: decreased breath sounds on the right Cardiovascular: regular rate/rhythm Gastrointestinal: normal bowel sounds, soft, non-tender Extremities: bilateral pitting edema Skin: intact, normal color, warm/dry Impression/Plan Impression/Plan Impression/Plan: 1. Large right-sided exudative pleural effusion, rule out etiology. Cytology is pending. The patient is status post pigtail catheter placement with removal and direct evacuation of a fluid pocket. He has significantly improved clinically. 2. Rule out underlying postobstructive pneumonia, less likely. All cultures remain negative and the patient is afebrile. 3. History of type 2 diabetes. 4. GERD. Recommendations: * Follow-up morning labs studies. * Agree with monitoring the patient off antibiotics. * Check a PA and lateral chest x-ray today. Will need to evaluate the patient for pleural fluid reaccumulation rate. * Incentive spirometry. * Oxygen for sats greater than 92%. * Increase activity, ambulate. * DVT prophylaxis at all times. * Plan discussed with house staff. * I discussed the plan of care with CT surgery at length. We will need cytology results to help guide further decisions. If the patient has rapid reaccumulation of fluid, he may require further intervention such as Pleurx catheter placement or VATS. We will need to monitor the patient for rapidity of fluid reaccumulation. If he does not reaccumulate, the patient can be discharged in the next few days and managed as an outpatient.
--- NOTE | 2018-04-09 10:37 | PN- Att Addend ---
Attending Addendum Attending Brief Note Patient sitting in the chair, at the bedside. Still a little short of breath. Still needing oxygen. Yesterday he had a thoracentesis of the loculated fluid in the PICC tail catheter was removed. Appreciate Dr. Coburn input and recommendations. Patient is febrile, blood pressure on the low side. States he has swelling in the genitalia area. No other major changes in physical. Will get another chest x-ray today to see if the fluid is reaccumulating and treat accordingly. The cytologies are pending. Intake & Output 04/09 1600 04/09 0400 04/08 1600 04/08 04004/07 1600 04/07 0400 Intake Total 110 250 790 240 950 330 Output Total 550 6 655 375 Balance -440 250 784 240 295 -45 Intake, IV 10 10 250 30 Intake, Oral 100 240 540 240 950 300 Number 1 1 Bowel Movements Output, Chest 6 5 25 Tube Drainage Output, Urine 550 650 350 Current Medications Sig/Alli Start time Last Medication Dose Route Stop Time Status Admin Acetaminophen 650 MG Q6P PRN 04/05 1600 AC 04/06 PO 1326 Albuterol Sulfate 3 ML Q4P PRN 04/06 1100 AC INH Aspirin Buffered 81 MG DAILY 04/06 09 AC 04/09 PO 0815 Atorvastatin Calcium 20 MG DAILY 04/06 09 AC 04/09 PO 0815 Azithromycin 250 MG 1700 04/06 1700 DC 04/07 PO 1739 Calcium Carbonate 500 MG ONCE ONE 04/08 2145 DC 04/08 PO 04/08 2146 2204 Ceftriaxone Sodium 1,000 MG 0 04/05 1700 DC 04/07 IV 1739 Enoxaparin Sodium 40 MG DAILY 04/06 09 AC 04/09 SC 0816 Insulin Aspart 0 TIDAC 04/05 1700 AC 04/09 SC 0815 Lisinopril 5 MG DAILY 04/06 09 AC 04/06 PO 0819 Patient Medication 1 ED ONE ONE 04/08 1430 DC Teaching ED 04/08 1431 Sodium Chloride 250 ML BOLUS ONE 04/08 1115 DC 04/08 IV 04/08 1214 1153 Laboratory Tests 04/09/18 0640: Anion Gap 10, Estimated GFR > 60, BUN/Creatinine Ratio 47.8 H, CBC w Diff NO MAN DIFF REQ, RBC 4.17 L, MCV 82.2, MCH 27.3, MCHC 33.2, RDW 14.9 H, MPV 8.0, Gran % 83.0 H, Lymphocytes % 5.6 L, Monocytes % 11.0 H, Eosinophils % 0.3, Basophils % 0.1, Absolute Granulocytes 10.8 H, Absolute Lymphocytes 0.7 L, Absolute Monocytes 1.4 H, Absolute Eosinophils 0, Absolute Basophils 0 04/08/18 0705: Anion Gap 11, Estimated GFR 54 L, BUN/Creatinine Ratio 46.2 H, CBC w Diff NO MAN DIFF REQ, RBC 4.68 L, MCV 81.3, MCH 27.1, MCHC 33.4, RDW 14.9 H, MPV 8.0, Gran % 83.1 H, Lymphocytes % 6.2 L, Monocytes % 10.1 H, Eosinophils % 0.4, Basophils % 0.2, Absolute Granulocytes 11.1 H, Absolute Lymphocytes 0.8 L, Absolute Monocytes 1.4 H, Absolute Eosinophils 0.1, Absolute Basophils 0 Vital Signs Date Time Temp Pulse Resp B/P B/P Pulse O2 O2 Flow FiO2 Mean Ox Delivery Rate 04/09 0815 102 98/58 04/09 0646 98.0 97 20 105/68 90 Nasal 2.0L Cannula 04/09 0000 91 Nasal 2.0L Cannula 04/08 2233 98.7 100 20 121/74 91 Nasal 2.0L Cannula 04/08 1924 92 Room Air 04/08 1406 93 Room Air Room Air 04/08 1339 107/58 04/08 1150 102 92/54 04/08 1145 93 Room Air
--- NOTE | 2018-04-09 11:20 | RADIOLOGY REPORT ---
EXAMINATION: XR CHEST CLINICAL INFORMATION: Shortness of breath COMPARISON: Several prior chest CTs and chest x-rays, the most recent chest x-ray is dated 04/08/2018 TECHNIQUE: 2 views of the chest were obtained. FINDINGS: Improved aeration of the right hemidiaphragm. There remains thickening of the lateral pleural surface in addition to blunting of the right costophrenic angle. This likely represents a combination of pleural thickening and small amount of pleural fluid. Right perihilar fullness is again noted which corresponds with some regions of atelectasis and consolidation identified on recent cross-sectional imaging. No pneumothorax is present. The left hemithorax is well aerated. IMPRESSION: Overall there is improved aeration of the right hemidiaphragm with residual pleural thickening and likely a small amount of pleural fluid.
--- NOTE | 2018-04-09 13:19 | PN- Housestaff ---
See Addendum Subjective Follow-up For: SOB s/p thoracocentesis Subjective: Patient interviewed and examined at bedside. No acute events oevrnight. The patient has no complaints. He still gets short of breath if he walks and still requires Oxygen. He is s/p drainage of loculated fluid effusion in his chest. His Pigtail cathetar was removed yesterday.He denies fever, chills, nausea, vomiting. Review of Systems Constitutional: Reports: see HPI. Objective Last 24 Hrs of Vital Signs/I&O Vital Signs Date Time Temp Pulse Resp B/P B/P Pulse O2 O2 Flow FiO2 Mean Ox Delivery Rate 04/09 0815 102 98/58 04/09 0800 90 Nasal 2.0L Cannula 04/09 0646 98.0 97 20 105/68 90 Nasal 2.0L Cannula 04/09 0000 91 Nasal 2.0L Cannula 04/08 2233 98.7 100 20 121/74 91 Nasal 2.0L Cannula 04/08 1924 92 Room Air Intake & Output 04/09 1600 04/09 0800 04/09 0000 Intake Total 110 250 Output Total 550 Balance -440 250 Intake, IV 10 10 Intake, Oral 100 240 Number 1 Bowel Movements Output, Urine 550 Physical Exam General Appearance: Alert, Oriented X3, Cooperative, Mild Distress Assessment/Plan Assessment: Mr Pan is a 73 yo M with a PMH of T2DM, BPH, GERD who presents with a 2-3 week history of progressively worsening shortness of breath associated with dizziness, trouble sleeping, decreased p.o. intake, productive cough, general malaise, dyspnea on exertion. He went for diagnostic and therapeutic thoracentesis in ED, and is admitted for workup of his pleural effusion. He is s /p chest tube placement. He has minimal drainage forom his chest tube today. The patient desaturates to late 80s on room air. He still has been having episodes of hypotension but has been responding well to fluids. He is s/p ultrasound- guided thoracentesis with 250 mL drained. His pigtail cathetar was removed in the ER as well yesterday. Problem list/Assessment/Hospital Course: 1.Right-sided pleural effusion s/p thoracocentesis 2.Dyspnea 2/2 pleural effusion/COPD exacerbation? (resolving) 3.thrombocytosis with unclear etiology 4.PMH of GERD, BPH, HTN, HLD, T2DM, colonic polyps (tubular adenoma) 1.R sided pleural effusion -Went to IR for diagnostic/therapeutic tap which frained out 250ml of fluid; chest tube in place draining minimal fluid tody -awaiting cytology results -S/P Pigtail removal -Pulm input appreciated. Will f/u reccs. -O2 for sats falling intermittently in the late 80s., TRC and nebs as needed 2.Dyspnea 2/2 pleural effusion -Cytology report pending -Off Ceftriaxone and Azithro, per ID recommendation -F/u sputum culture -ECHO findings essentially normal with EF at >55% #Thrombocytosis -Will trend CBC #T2DM -ISS, accuchecks q6 -HbA1c 6.5 #Chronic med conditions -Continue home meds DVT PPx IV access Tolerating CC3 Diet Problem List: 1. Hypotension 2. Large pleural effusion 3. Hypoxia Pain Ratin Pain Location: na Pain Goal: Remain pain free Pain Plan: pathway Tomorrow's Labs & Rationales: oracio
[2018-04-09 21:00] VITALS: BP 110/64
--- NOTE | 2018-04-10 05:14 | PN- Housestaff ---
Belen Nye 04/10/18 0514: Subjective Follow-up For: sob s/p thoracocentesis and placement Subjective: The patient was seen and examined at bedside. Lowest measured blood pressure overnight was 98/58 at about 8 PM. Patient has no complaints except for no improvement in his cough over time. He denies fever, chills, shortness of breath, chest pain, nausea, vomiting. Review of Systems Constitutional: Reports: see HPI. Objective Last 24 Hrs of Vital Signs/I&O Vital Signs Date Time Temp Pulse Resp B/P B/P Pulse O2 O2 Flow FiO2 Mean Ox Delivery Rate 04/10 0617 97.6 90 20 112/62 92 Nasal 2.0L Cannula 04/10 0000 Nasal 2.0L Cannula 04/09 2100 98.6 80 20 110/64 94 Nasal 2.0L Cannula 04/09 0815 102 98/58 04/09 0800 90 Nasal 2.0L Cannula Intake & Output 04/10 0800 / 0000 04/09 1600 Intake Total 600 Output Total 300 200 450 Balance -300 -200 150 Intake, Oral 600 Output, Urine 300 200 450 Physical Exam General Appearance: Alert, Oriented X3, Cooperative, No Acute Distress, still on oxygen Skin: No Rashes, No Breakdown Neck: Supple Cardiovascular: Regular Rate, Normal S1, Normal S2 Lungs: air entry decreased on the right Assessment/Plan Assessment: Mr Pan is a 73 yo M with a PMH of T2DM, BPH, GERD who presents with a 2-3 week history of progressively worsening shortness of breath associated with dizziness, trouble sleeping, decreased p.o. intake, productive cough, general malaise, dyspnea on exertion. He went for diagnostic and therapeutic thoracentesis in ED, and is admitted for workup of his pleural effusion. He is s /p chest tube placement. He has minimal drainage forom his chest tube today. The patient desaturates to late 80s on room air. He still has been having episodes of hypotension but has been responding well to fluids. He is s/p ultrasound- guided thoracentesis with 250 mL drained. No acute complaints overnight. He is still on oxygen. Problem list/Assessment/Hospital Course: 1.Right-sided pleural effusion s/p thoracocentesis 2.Dyspnea 2/2 pleural effusion/COPD exacerbation? (resolving) 3.thrombocytosis with unclear etiology 4.PMH of GERD, BPH, HTN, HLD, T2DM, colonic polyps (tubular adenoma) 1.R sided pleural effusion -Went to IR for diagnostic/therapeutic tap which frained out 250ml of fluid; chest tube in place draining minimal fluid tody -awaiting cytology results -S/P Pigtail removal -Pulm input appreciated. Will follow up on recommendations. -Incentive spirometry per pulmonary. -Try to increase his activity and encourage more ambulation. -Chest x-ray done yesterday showed improved aeration of the right hemidiaphragm with residual pleural thickening and likely a small amount of pleural fluid. -O2 for sats falling intermittently in the late 80s., TRC and nebs as needed 2.Dyspnea 2/2 pleural effusion -Cytology report pending -Off Ceftriaxone and Azithro, per ID recommendation -F/u sputum culture -ECHO findings essentially normal with EF at >55% #Thrombocytosis -Will trend CBC #T2DM -ISS, accuchecks q6 -HbA1c 6.5 #Chronic med conditions -Continue home meds DVT PPx IV access Tolerating CC3 Diet Problem List: 1. Hypoxia 2. Large pleural effusion 3. Hypotension Pain Ratin Pain Location: na Pain Goal: Remain pain free Pain Plan: na Tomorrow's Labs & Rationales: cbc and bep Pradeep Landa MD 04/10/18 1137: Attending MD Review Statement Attending Statement Attending MD Statement: examined this patient, agreed w/resident/PA/DIE DRAWING CHECKER, discussed with family, reviewed EMR data (avail), reviewed images, amended to note Attending Assessment/Plan: Mr. Pan was interviewed and examined. His EMR was reviewed. He still notes cough productive of small amounts of white sputum. He denies hemoptysis. He denies fever, chills, pleuritic pain, and shortness of breath. He denies nausea and vomiting. He remains afebrile. His other vital signs are stable. Room air saturation is 92%. He is in no acute distress. He has an intermittent dry cough but lung exam does not reveal any wheezes or rhonchi. Heart exam is benign. His abdomen is soft and nontender. WBC and platelets continue to decrease. He has also shown a mild decrease in his H&H. Electrolytes and renal function are satisfactory and stable. Cultures have shown no growth. We are continuing to monitor Mr. Pan for reaccumulation of his effusion after his thoracentesis of yesterday. We are continuing incentive spirometry, TRC, and we will follow his oxygen saturations on room air. We will continue to follow his cultures. We are following his WBC and platelet counts as well. We are continuing his maintenance medications.
[2018-04-10 06:17] VITALS: BP 112/62
[2018-04-10 08:09] LABS: ABSOLUTE BASOPHIL COUNT 0 /CUMM (0.0-0.2); ABSOLUTE EOSINOPHIL COUNT 0.1 /CUMM (0.0-0.7); ABSOLUTE GRANULOCYTE CT 9.2 /CUMM (1.4-6.5); ABSOLUTE LYMPH COUNT 0.8 /CUMM (1.2-3.4); ABSOLUTE MONOCYTE COUNT 1.1 /CUMM (0.10-0.60); BASOPHIL % 0 % (0.0-2.0); EOSINOPHIL % 1.3 % (0-5); GRANULOCYTE % 81.9 % (42.2-75.2); HEMATOCRIT 33.5 % (42-52); MEAN CORPUSCULAR HGB 27.4 PG (27.0-31.0); MEAN CORPUSCULAR HGB CONC 33.3 G/DL (33.0-37.0); MEAN CORPUSCULAR VOLUME 82.3 FL (80.0-94.0); MEAN PLATELET VOLUME 7.7 FL (7.4-10.4); PLATELET COUNT 462 /CUMM (130-400); RBC DISTRIBUTION WIDTH 14.6 % (11.5-14.5); RED BLOOD CELL CT 4.06 /CUMM (4.70-6.10); WHITE BLOOD CELL COUNT 11.3 /CUMM (4.8-10.8)
--- NOTE | 2018-04-10 08:11 | PN- Pulmonary ---
Subjective HPI/Critical Care Issues: The patient is awake and alert. He reports feeling improved overall. There were no overnight events. He offers no new complaints today. Objective Current Medications: Current Medications Sig/Alli Start time Last Medication Dose Route Stop Time Status Admin Acetaminophen 650 MG Q6P PRN 04/05 1600 AC 04/06 PO 1326 Albuterol Sulfate 3 ML Q4P PRN 04/06 1100 AC INH Aspirin Buffered 81 MG DAILY 04/06 0900 AC 04/09 PO 0815 Atorvastatin Calcium 20 MG DAILY 04/06 0900 AC 04/09 PO 0815 Calcium Carbonate 500 MG DAILY 04/10 09 DC PO Calcium Carbonate 500 MG DAILY 04/09 2230 AC 04/09 PO 2230 Enoxaparin Sodium 40 MG DAILY 04/06 0900 AC 04/09 SC 0816 Insulin Aspart 0 TIDAC 04/05 1700 AC 04/09 SC 0815 Lisinopril 5 MG DAILY 04/06 0900 AC 04/06 PO 0819 Patient Medication 1 ED ONE ONE 04/09 1515 DC 04/09 Teaching ED 04/09 1516 1636 Vital Signs & I&O Last 24 Hrs of Vitals and I&O: Vital Signs Date Time Temp Pulse Resp B/P B/P Pulse O2 O2 Flow FiO2 Mean Ox Delivery Rate 04/10 0617 97.6 90 20 112/62 92 Nasal 2.0L Cannula 04/10 0000 Nasal 2.0L Cannula 04/09 2100 98.6 80 20 110/64 94 Nasal 2.0L Cannula 04/09 0815 102 98/58 Intake & Output 04/10 1600 04/10 0800 04/10 0000 Intake Total Output Total 300 200 Balance -300 -200 Output, Urine 300 200 Physical Exam General Appearance: alert, awake, no distress Head: atraumatic, normal appearance Eyes: Bilateral: PERRL. Neck: supple Respiratory: decreased breath sounds on the right Cardiovascular: regular rate/rhythm Gastrointestinal: normal bowel sounds, soft, non-tender Extremities: bilateral pitting edema Skin: intact, normal color, warm/dry Impression/Plan Impression/Plan Impression/Plan: 1. Large right-sided exudative pleural effusion, rule out etiology. Cytology is pending. The patient is status post pigtail catheter placement with removal and direct evacuation of a fluid pocket. He has significantly improved clinically. 2. Rule out underlying postobstructive pneumonia, less likely. All cultures remain negative and the patient is afebrile. 3. History of type 2 diabetes. 4. GERD. Recommendations: * Follow-up morning labs studies. * Agree with monitoring the patient off antibiotics. * Check a PA and lateral chest x-ray tomorrow am. Will need to evaluate the patient for pleural fluid reaccumulation rate. * Follow-up pathology results. I made several attempts to obtain the results however they are still unavailable. * Incentive spirometry. * Oxygen for sats greater than 92%. * Increase activity, ambulate. * DVT prophylaxis at all times. * If the patient does not have significant pleural effusion reaccumulation tomorrow, we can consider discharge and outpatient follow-up.
[2018-04-10 13:58] VITALS: BP 100/60
[2018-04-10 21:53] VITALS: BP 107/57
[2018-04-11 06:26] VITALS: BP 104/64
[2018-04-11 08:48] LABS: ABSOLUTE BASOPHIL COUNT 0 /CUMM (0.0-0.2); ABSOLUTE EOSINOPHIL COUNT 0.2 /CUMM (0.0-0.7); ABSOLUTE GRANULOCYTE CT 8.2 /CUMM (1.4-6.5); ABSOLUTE LYMPH COUNT 0.7 /CUMM (1.2-3.4); BASOPHIL % 0.5 % (0.0-2.0); EOSINOPHIL % 1.8 % (0-5); GRANULOCYTE % 81.5 % (42.2-75.2); HEMATOCRIT 32.6 % (42-52); MEAN CORPUSCULAR HGB CONC 32.9 G/DL (33.0-37.0); MEAN CORPUSCULAR VOLUME 81.9 FL (80.0-94.0); MEAN PLATELET VOLUME 7.9 FL (7.4-10.4); PLATELET COUNT 474 /CUMM (130-400); RED BLOOD CELL CT 3.98 /CUMM (4.70-6.10); WHITE BLOOD CELL COUNT 10.1 /CUMM (4.8-10.8)
--- NOTE | 2018-04-11 10:15 | PN- Housestaff ---
Subjective Follow-up For: Rt-sided pleural effusion therapeutic and diagnostic thoracocentesis,COPD exacerbation, Thrombocytosis, Complaints: no complaints Subjective: Patient seen and examined in bed. Patient is sitted in chair without any shortness of breath, discomfort. He can walk around in hallways. He denies fever, chills, chest pain, palpitations, abdominal pain, diarrhea, burning micturition. Review of Systems Constitutional: Reports: see HPI. Objective Last 24 Hrs of Vital Signs/I&O Vital Signs Date Time Temp Pulse Resp B/P B/P Pulse O2 O2 Flow FiO2 Mean Ox Delivery Rate 04/11 0809 92 116/60 / 0626 97.5 88 20 104/64 93 Room Air / 0000 92 Nasal 2.0L Cannula 04/10 2153 100.1 106 18 107/57 94 04/10 1600 Room Air 04/10 1358 99.6 100 20 100/60 92 Room Air Intake & Output 04/11 1600 08/05 0800 08/05 0000 Intake Total 310 Output Total 800 Balance -800 310 Intake, IV 10 Intake, Oral 300 Number 0 Bowel Movements Output, Urine 800 Physical Exam General Appearance: Alert, Oriented X3, Cooperative, No Acute Distress Lungs: Clear to Auscultation (Decrease air entery on right L), Decrease entery on right lung. Left lung airentery is normal Abdomen: Normal Bowel Sounds, Soft, No Tenderness, No Hepatospenomegaly Assessment/Plan Problem List: 1. Large pleural effusion Pain Ratin Pain Location: N/A Pain Goal: Remain pain free Pain Plan: N/A Tomorrow's Labs & Rationales: N/A. Patient's Concerns: 73-year-old male past medical history of type 2 diabetes mellitus, BPH, GERD, hypertension, hyperlipidemia, colonic polyps (tubular adenoma) presented to the emergency department complaint of progressively worsening shortness of breath for the past 2-3 weeks which was associated with disturbed sleep, weakness, productive cough decreased appetite. Problems list: -Right-sided pleural effusion waiting for cytology. -Diagnostic and therapeutic thoracocentesis -Dyspnea secondary to pleural effusion or may be COPD exacerbation -Thrombocytosis. Plan: Patient seen and examined today morning. He is doing well overnight he is vitally stable with oxygen saturation of 93%. -Chest tube removed.Pathology report is awaited. -Today chest x-ray shows stable to mildly worsened moderate right pleural effusion with adjacent parenchymal atelectasis/consolidation. New small left pleural effusion with adjacent basilar opacification. -Continue incentive spirometry -Keep oxygen saturation more than 92% -Ambulation should be encouraged. -According to her vp treasurer the patient can go home and will be followed in clinic. -DVT prophylaxis. -Full code.
--- NOTE | 2018-04-11 11:56 | PN- Pulmonary ---
Subjective HPI/Critical Care Issues: The patient is awake and alert. He reports feeling improved overall. He is ambulating better in the hallways. He is on room air and not requiring supplemental oxygen. His chest x-ray is pending. Objective Current Medications: Current Medications Sig/Alli Start time Last Medication Dose Route Stop Time Status Admin Acetaminophen 650 MG Q6P PRN 04/05 1600 AC 04/06 PO 1326 Albuterol Sulfate 3 ML Q4P PRN 04/06 1100 AC INH Aspirin Buffered 81 MG DAILY 04/06 09 AC 04/11 PO 0808 Atorvastatin Calcium 20 MG DAILY 04/06 09 AC 04/11 PO 0809 Calcium Carbonate 500 MG ONCE ONE 04/10 1930 DC 04/10 PO 04/10 Calcium Carbonate 500 MG DAILY 04/09 2230 AC 04/11 PO 08 Enoxaparin Sodium 40 MG DAILY 04/06 09 AC 04/11 SC 0814 Insulin Aspart 0 TIDAC 04/05 1700 AC 04/10 SC 1652 Lisinopril 5 MG DAILY 04/06 09 AC 04/11 PO 0809 Physical Exam General Appearance: alert, awake, no distress Head: atraumatic, normal appearance Eyes: Bilateral: PERRL. Neck: supple Respiratory: decreased breath sounds on the right Cardiovascular: regular rate/rhythm Gastrointestinal: normal bowel sounds, soft, non-tender Extremities: bilateral pitting edema Skin: intact, normal color, warm/dry Vital Signs & I&O Last 24 Hrs of Vitals and I&O: Vital Signs Date Time Temp Pulse Resp B/P B/P Pulse O2 O2 Flow FiO2 Mean Ox Delivery Rate 04/11 1426 96 102/60 04/11 1346 98.6 95 20 100/62 93 Room Air 04/11 0809 92 116/60 04/11 0626 97.5 88 20 104/64 93 Room Air 04/11 0000 92 Nasal 2.0L Cannula 04/10 2153 100.1 106 18 107/57 94 Intake & Output 04/11 1600 04/11 0000 Intake Total 580 310 Output Total 800 Balance 580 -800 310 Intake, IV 20 10 Intake, Oral 560 300 Number 0 Bowel Movements Output, Urine 800 Results Last 24 Hrs of Lab Results: Laboratory Tests 04/11/18 0725: Anion Gap 8, Estimated GFR > 60, BUN/Creatinine Ratio 34.3 H, CBC w Diff NO MAN DIFF REQ, RBC 3.98 L, MCV 81.9, MCH 27.0, MCHC 32.9 L, RDW 15.0 H, MPV 7.9, Gran % 81.5 H, Lymphocytes % 6.6 L, Monocytes % 9.6 H, Eosinophils % 1.8, Basophils % 0.5, Absolute Granulocytes 8.2 H, Absolute Lymphocytes 0.7 L, Absolute Monocytes 1.0 H, Absolute Eosinophils 0.2, Absolute Basophils 0 Impression/Plan Impression/Plan Impression/Plan: 1. Large right-sided exudative pleural effusion, cytology pending. 2. No clinical evidence to suggest active pneumonia. 3. History of type 2 diabetes. 4. GERD. Recommendations: * Await chest x-ray results this morning. * Follow-up pathology results. * Incentive spirometry. * Oxygen for sats greater than 92%. * Increase activity, ambulate. * DVT prophylaxis at all times. * If the patient does not have significant pleural effusion reaccumulation today , we can consider discharge and outpatient follow-up. I will see the patient along with CT surgery in the office next week if he is discharged later today.
[2018-04-11] MEDS ORDERED: METAMUCIL SUGA283 GM PO (12:10)
--- NOTE | 2018-04-11 12:34 | PN- Att Addend ---
Attending Addendum Attending Brief Note Mr. Pan was interviewed and examined. His EMR was reviewed. He still notes cough which is occasionally productive of white to green sputum. He denies fever, chills, dyspnea at rest, dyspnea on exertion, pleuritic pain, and hemoptysis. T-max 100.1. His heart rate is satisfactory at present but he was mildly tachycardic at times overnight. Respiratory rate and blood pressure are stable and satisfactory. He is saturating in the low 90s on room air. He is in no acute distress. Pulmonary exam reveals decreased breath sounds on the right posteriorly. Heart exam reveals a regular rate and rhythm. His abdomen is soft and nontender. WBC had normalized at 10,100 and his platelet count is essentially unchanged today. Electrolytes and renal function are stable. Pleural fluid cultures are negative. Follow-up chest x-ray is pending. Mr. Pan remains stable following thoracentesis for a right sided pleural effusion. Should his chest x-ray show no significant reaccumulation our plan is to discharge him to home with outpatient follow-up. He will be continued on his home maintenance medications. Arrangements will be made for an office visit with Dr. Moore within the next 2 weeks.
[2018-04-11 13:46] VITALS: BP 100/62
[2018-04-11 14:26] VITALS: BP 102/60
--- NOTE | 2018-04-11 14:49 | RADIOLOGY REPORT ---
EXAMINATION: XR CHEST CLINICAL INFORMATION: Shortness of breath. COMPARISON: Chest radiography 04/09/2018. TECHNIQUE: 2 views of the chest were obtained. FINDINGS: Persistent blunting of the right costophrenic angle with adjacent parenchymal opacification and thickening of the right lateral pleural stripe. There is new/worsening blunting of the left costophrenic angle and mild thickening of the left lateral pleural stripe. Adjacent left basilar opacification. No pneumothorax. The cardiac contour is prominent, unchanged. No acute osseous abnormalities. IMPRESSION: Stable to mildly worsened moderate right pleural effusion with adjacent parenchymal atelectasis/consolidation. New small left pleural effusion with adjacent basilar opacification.
--- NOTE | 2018-04-11 15:18 | Patient Discharge Instructions ---
Discharge Instructions General Discharge Information You were seen/treated for: Pleural effusion You had these procedures: Thoracentesis Special Instructions: Please follow up with the dairy helper and surgeon within 1 week of discharge. Please have repeat imaging done on Thursday, April 13, to assess for any increase in fluid in the lungs. If you experience worsening shortness of breath, chest pain, fever, chills, nausea/vomitting, please call your pcp or come back to the hospital. Diet Continue normal diet: No Recommended Diet: Diabetic Activity Full Activity/No Limits: No Activity Self Limited: Yes Acute Coronary Syndrome Inclusion Criteria At DC or during hospital stay patient has or had the following: ACS DIAGNOSIS No Discharge Core Measures Meds if any: Prescribed or Continued at Discharge Meds if any: NOT Prescribed or Continued at Discharge Congestive Heart Failure Inclusion Criteria At DC or during hospital stay patient has or had the following: CHF DIAGNOSIS No Discharge Core Measures Meds if any: Prescribed or Continued at Discharge Meds if any: NOT Prescribed or Continued at Discharge Cerebrovascular accident Inclusion Criteria At DC or during hospital stay patient has or had the following: CVA/TIA Diagnosis No Discharge Core Measures Meds if any: Prescribed or Continued at Discharge Meds if any: NOT Prescribed or Continued at Discharge Venous thromboembolism Inclusion Criteria VTE Diagnosis No VTE Type NONE VTE Confirmed by (Test) NONE Discharge Core Measures - Per Current guidelines, there needs to be overlap - treatment for the first 5 days of Warfarin therapy. - If discharged on Warfarin prior to 5 days of - overlap therapy, the patient will need to be - assessed for post discharge needs including - *Post discharge parental anticoagulation - *Warfarin and/or parental anticoagulation education - *Follow up date to check INR post discharge At least 5 days overlap therapy as Inpatient No Meds if any: Prescribed or Continued at Discharge Note: Overlap Therapy is Warfarin and Anticoagulant Meds if any: NOT Prescribed or Continued at Discharge
[2018-04-16] MEDS ORDERED: LASIX40 M1 PO (15:57)
--- NOTE | 2018-04-21 14:41 | Discharge Summary ---
Visit Information Visit Dates Admission Date: 04/05/18 Discharge Date: 04/11/18 Hospital Course Course Attending Physician: Geoff Moore MD Primary Care Physician: Geoff Moore MD Consulting Request: Consulting Specialty: Pulmonary Disease Consulting Physician: Dr. Coburn Reason for Consult: Acute respiratory failure 2d to large right pleural effussion. Hospital Course: 73-year-old white male for the last 2 or 3 weeks was having shortness of breath progressively worse and some leg edema. He went to walk-in clinic and was given antibiotic and steroids with no improvement of the symptoms. Patient called me on Thursday and I ordered a chest x-ray which showed large right pleural effusion. Was immediately referred to pulmonary patient was seen Thursday morning and was found to be hypoxemic and in acute respiratory failure due to the hypoxemia and the pleural effusion was recommended that the patient was admitted, that was done patient had a thoracentesis with immediate relief of the symptoms he had a thoracentesis and chest drainage had the PICC tail catheter which continued to drain over the days. Patient slowly felt a little better still weak still pale still a little low blood pressure at first still using oxygen. 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 Patient is due to follow with Dr. Coburn and after seeing her he will be seeing the oncologist for further testing and treatment Complications: None Allergies: Coded Allergies: No Known Allergies (04/05/18) Significant Procedures: Patient had thoracentesis with chest drainage SERVICE DATE: 04/05/18- EXAM TYPE: RAD - XRY-PORTABLE CHEST XRAY EXAMINATION: XR PORTABLE CHEST CLINICAL INFORMATION: Thoracentesis COMPARISON: Chest x-ray 03/29/2018, 04/05/2018. TECHNIQUE: Portable frontal view of the chest was obtained. FINDINGS: There is a large volume right pleural effusion nearly opacifying the entire right hemithorax. Small region of aeration remains at the apex of the right lung. The volume of this pleural effusion is similar to the chest x-ray of 04/05/2018. There is no pneumothorax. There is no left-sided pleural effusion. There is no midline shift. Clinical history is placement of a catheter. The right lung base is underpenetrated and the catheter is not well seen. The pigtail catheter though can be seen over the right lung base. IMPRESSION: Large volume right pleural effusion. There is no pneumothorax. Pigtail catheter projecting over the right lung base. SERVICE DATE: 04/05/18 EXAM TYPE: RAD - XRY-CHEST XRAY, TWO VIEWS EXAMINATION: XR CHEST CLINICAL INFORMATION: Shortness of breath. COMPARISON: Chest x-ray dated 04/01/2018. TECHNIQUE: 3 views of the chest were obtained. FINDINGS: There has been interval increase in size of the right-sided pleural effusion, with now only a small amount of aerated lung remaining in the right upper lobe. The left lung remains fully expanded and clear. Cardiac silhouette is partially obscured by the right pleural fluid but is normal in size. Calcification of the aortic arch is seen. Bony structures are unremarkable. IMPRESSION: 1. Interval increase in size of right-sided pleural effusion, now large in volume and extending to the right lung apex with only a small amount of aerated lung in the right lung apex remaining. 2. Left lung expanded and clear. SERVICE DATE: 04/05/18 EXAM TYPE: US - US-GUIDANCE PROCEDURE: Ultrasound-guided chest tube placement. INDICATION: Large right pleural effusion. ACCESS: 6 Fr. One-Step Needle REQUESTING PRACTITIONER: Jin Bowens MD CLINICIAN(S): Aramis Benson M.D. CONSENT: Informed consent was obtained from the patient prior to the procedure. During this process, the procedure and potential alternatives were explained along with the intended outcome and benefits. The risks of the procedure, including the possibility of an unsuccessful procedure as well as the risk of not doing the procedure were discussed. The patient was given the opportunity to ask any questions regarding the procedure and appeared competent to make medical decisions. A signed consent form which documents this discussion was placed in the medical record. A timeout procedure was performed. HISTORY: JOHNSON HICKS is a 73 years old Male with shortness of breath. A recent chest x-ray demonstrates a large right pleural effusion. The patient was referred for ultrasound-guided right chest tube placement. MEDICATIONS: 10ml 1% lidocaine. TECHNIQUE/FINDINGS: Appropriate pre-procedure medical history and imaging studies were reviewed. The patient was brought to the ultrasound department and placed in the seated position. Ultrasound images of the right thorax were obtained to localize a large pleural effusion. Images were permanently saved to the record. An area of the patient's right back was prepped and draped in the standard sterile fashion. 10 mL of 1% lidocaine was used to obtain local anesthesia of the skin and deeper tissues. A standard small bore needle was introduced to sample fluid and demonstrated a safe access route. A 6 Mexican one step needle was then used to access the pleural cavity. A guidewire was then placed through the introducer into the chest. The access site was then sequentially dilated using dilators sized 8 Fr and 10 Fr. A 10 Fr. nonlocking catheter was then advanced over the wire into the chest cavity. The wire was removed and the catheter was secured to the skin with a single suture and a sterile dressing was placed over the site. The catheter was then connected to a closed chest drainage system. Approximately 1500 mL's of fluid was drained. The valve was closed at this time. This was discussed with CHRISTY Schreiber. They will drain the lung further as they feel clinically appropriate. The patient tolerated the procedure well without evidence of complications. IMPRESSION: Successful right ultrasound-guided chest tube placement yielding 1.5 L of fluid. SERVICE DATE: 04/06/18- EXAM TYPE: CAT - CT CHEST WO IV CONTRAST EXAMINATION: CT CHEST WITHOUT CONTRAST CLINICAL INFORMATION: Follow-up right pleural effusion; draining chest tube. COMPARISON: CXR from 04/01/2018, 04/05/2018 at 04/06/2018. TECHNIQUE: Multidetector volumetric CT imaging of the chest was done. Axial MIP volume rendering provided. Sagittal and coronal reformatted images were obtained. DLP: 473 mGy-cm FINDINGS: LUNGS AND PLEURA: Trachea and central airways are widely patent and normal in caliber. A pigtail pleural change catheter is present within the posteroinferior aspect of the right hemithorax. Small residual right pleural effusion is present. The visceral and parietal pleura appear mildly thickened around the effusion; note that the pleura is not optimally evaluated on this noncontrast examination. There is volume loss of the right lung. There is curvilinear appearance of bronchovascular structures in the right middle lobe as they extend peripherally toward the pleura. Associated curvilinear opacities of rounded atelectasis or fibrosis extending to the pleura. Similar findings are seen in the anterior aspect of the right lower lobe. Mild atelectasis or consolidation in the dependent aspect of the right lower lobe. No lung nodule or mass. There is a trace left pleural effusion. MEDIASTINUM: The heart size is normal. Atherosclerotic calcification of coronary arteries and thoracic aorta without aortic aneurysm. Pulmonary arteries are normal in caliber. Trace pericardial effusion. The esophagus and thyroid gland are unremarkable. LYMPHATICS: No axillary or hilar lymphadenopathy. Within the mediastinum, right paratracheal lymph nodes measure up to 1 cm short axis dimension (i.e., borderline enlarged). UPPER ABDOMEN: There are diverticula of the partially visualized colon. Adrenal glands are normal. Mild haziness of peripancreatic fat requires additional clinical and laboratory correlation. Acute, mild pancreatitis is possible. A prominent portacaval lymph node is 1.2 cm AP and periportal lymph node 1.3 cm in short axis dimension. There appears to be a small, 0.6 cm cyst within hepatic segment . SKELETAL AND CHEST WALL: Old, healed fractures of right posterolateral sixth and seventh ribs. Mild spondylosis of the thoracic spine. No aggressive osseous lesions. IMPRESSION: 1. The right pleural effusion has significantly decreased after pigtail catheter drainage. The pleural effusion is probably chronic, and there appears to be mild thickening of visceral and parietal pleura around the effusion. There is mild volume loss of the right lung with curvilinear appearance of bronchovascular structures in the right middle lobe and anterior right lower lobe as they extend to the pleura. Associated opacities from rounded atelectasis and/or fibrosis extending to the pleura. 2. Trace left pleural effusion. 3. Borderline right paratracheal lymphadenopathy. 4. Atherosclerosis of coronary arteries and thoracic aorta without aortic aneurysm. 5. Mild lymphadenopathy in the periportal/portacaval region of the upper abdomen. Also, there is haziness of peripancreatic fat -- suspicious for pancreatitis. SERVICE DATE: 04/06/18 EXAM TYPE: RAD - XRY-CHEST XRAY, TWO VIEWS EXAMINATION: XR CHEST CLINICAL INFORMATION: Status post right-sided thoracentesis. For follow up. COMPARISON: Chest done on 04/05/2018. TECHNIQUE: 2 views, 3 images of the chest were obtained. FINDINGS: The size of the right-sided pleural effusion is significantly decreased since 04/05/2018. Diffuse heterogeneous airspace disease is noted within the entire right lung, may represent infiltrate, atelectasis, or combination thereof. There is right perihilar soft tissue fullness present, possibility of a mass in this region is not excluded. Follow up contrast-enhanced CT scan of the chest may be considered for further full detailed evaluation. The left hemithoracic lung field is clear. The cardiomediastinal silhouette is mildly enlarged. The visualized upper abdomen is unremarkable. IMPRESSION: SERVICE DATE: 04/07/18- EXAM TYPE: CAT - CT CHEST W IV CONTRAST EXAMINATION: CT CHEST WITH CONTRAST CLINICAL INFORMATION: Pleural effusion, status post pigtail insertion. Presumptive diagnosis of malignancy and postobstructive pneumonia. COMPARISON: CT scan of the chest dated 04/06/2018. TECHNIQUE: Multidetector volumetric CT imaging of the chest was obtained after the administration of 95 mL of intravenous Optiray 320. Sagittal and coronal reformations were obtained. DLP: 567.74 mGy-cm. FINDINGS: LUNGS/PLEURA: There is a small simple appearing left-sided posterior layering pleural effusion, extending superiorly to the subcarinal level. On the right side, there are some loculations to the pleural fluid, and the overall volume of the pleural fluid is slightly larger than on the left side. Compared to the prior exam, the volume of fluid has remained stable. No significant pleural thickening or enhancement is seen. There is a pleural pigtail catheter seen along the right lateral lower pleural space, unchanged. There is again seen volume loss in the right middle lobe with a swirling appearance of the bronchovascular structures extending from the hilum to the periphery, suspicious for rounded atelectasis. The central airways viral mildly narrowed, remain patent. There is also patchy atelectatic change in the right lower lobe and platelike atelectasis anteriorly within the right upper lobe. There is a tiny 3 mm solid noncalcified pleural-based nodule in the lingula (series 4, image 289), unchanged from the prior exam. Additional 5 mm solid noncalcified nodule is seen centrally within the left lower lobe (series 4, image 332). A calcified granuloma seen in the left lower lobe (series 4, image 338). No other definite lung nodule or mass is seen in the left lung. LYMPHATIC STRUCTURES: Again seen are multiple subcentimeter sized bilateral axillary lymph nodes with surrounding slight haziness in the fat, nonspecific. Borderline sized right upper paratracheal lymph node (series 2, image 21) is seen, measuring 1 cm in short axis, unchanged. No other mediastinal adenopathy is seen. Evaluation of the right aimee is limited due to volume averaging with the adjacent lung consolidation of pleural fluid. There appears to be mild right infrahilar adenopathy, measuring up to 1.1 cm in short axis (series 2, image 31) some soft tissue thickening is also seen extending along the right middle lobe and right lower lobe central airways, unchanged from prior exam. Again seen are small periportal and borderline enlarged 1.0 cm portacaval lymph node (series 2, image 63). CARDIOVASCULAR STRUCTURES: Aortic and heart size normal. Trace pericardial effusion. Moderate three-vessel coronary artery calcifications. Moderate aortic and great vessel calcifications. UPPER ABDOMEN: There is extensive peripancreatic edema. There is a 0.5 cm low-attenuation mass in hepatic segment 6 (series 2, image 62), too small to further characterize and unchanged from prior exam. Included portions of the solid organs in the upper abdomen within normal limits. OSSEOUS STRUCTURES: Moderate vertebral endplate spurring is seen throughout the thoracic spine. No suspicious focal findings. IMPRESSION: 1. Small loculated right-sided pleural effusion is seen, slightly larger when compared to 04/06/2018. No definite pleural thickening or nodularity or abnormal enhancement is seen. 2. Persistent volume loss throughout the right lung with findings in the right middle lobe suggestive of rounded atelectasis and with findings in the right lower lobe consistent with dependent atelectasis and findings in the right upper lobe consistent with platelike atelectasis. The central airways are narrowed but patent and no endobronchial mass or centrally obstructing mass is seen. 3. No significant change in borderline size right upper paratracheal lymph node and in right infrahilar lymph node. No significant change in periportal and portacaval lymph nodes. 4. Stable small left-sided pleural effusion and trace pericardial effusion. 5. Prominent peripancreatic fat stranding is seen, highly suspicious for acute pancreatitis. Close clinical correlation is requested. 6. Moderate three-vessel coronary artery calcifications. 7. Indeterminate subcentimeter hepatic mass, unchanged from recent prior exam. SERVICE DATE: 04/08/18- EXAM TYPE: US - US-THORACENTESIS PROCEDURE: 1. Thoracentesis 2. Right pleural drain removal CLINICAL INFORMATION: Pleural Effusion COMPARISON: Chest CT 04/07/2018 and 04/06/2018 TECHNIQUE: Indirect ultrasound guided thoracentesis using a 5 Mexican Yueh catheter. FINDINGS: Informed consent was obtained from the patient prior to the procedure. During this process, the procedure alternatives were explained, along with the intended outcome and benefits. The risks of the procedure, as well as the risk of not doing the procedure, was discussed. The patient was given the opportunity to ask questions regarding the procedure and appeared competent to make medical decisions. A signed consent form which documents this discussion was placed in the medical record. A timeout procedure was performed. Ultrasound evaluation of the chest for pleural fluid was performed. A small residual pleural effusion was noted within the posterior midline right pleural space. This was consistent with cross-sectional imaging findings from yesterday . Using standard interventional and sterile techniques, lidocaine was used to anesthetize the region. A 5 Mexican Yueh catheter was introduced into the right pleural fluid using standard safety needle technique. Approximately 240 mL of thin, serosanguineous, nonclotting fluid was removed using manual aspiration. The catheter was then removed. Good hemostasis was achieved. Dermabond was placed. Ultrasound imaging demonstrated complete resolution of this loculated pleural effusion. Existing right-sided pleural drain was attached to a catheter and several attempts were made to aspirate more fluid, however, all these were unsuccessful. Ultrasound imaging in this region demonstrated no residual fluid. For this reason, the retaining suture was cut and the pleural catheter was removed in its entirety using gentle pressure. A sterile dressing was placed. The patient tolerated the procedure well. The patient was discharged from the department in stable condition. Patient scheduled for post procedure followup x-ray. COMPLICATIONS: None. IMPRESSION: SERVICE DATE: 04/08/18 EXAM TYPE: RAD - XRY-CHEST XRAY, SINGLE VIEW EXAMINATION:\H\ \N\XR CHEST CLINICAL INFORMATION: Status post right-sided thoracentesis and removal of right-sided pleural drain. COMPARISON: Chest CT 04/07/2018 and 04/06/2018. Chest x-ray 04/06/2018 TECHNIQUE: Frontal view of the chest was obtained. FINDINGS: No pneumothorax. Interval removal of right-sided chest tube. Persistent right fissural thickening and prominent of the lateral pleura suggesting mild residual pleural fluid. Patchy opacities projecting over the right hemithorax consistent with primarily atelectasis. The left hemithorax is well aerated. IMPRESSION: No pneumothorax. SERVICE DATE: 04/09/18- EXAM TYPE: RAD - XRY-CHEST XRAY, TWO VIEWS EXAMINATION: XR CHEST CLINICAL INFORMATION: Shortness of breath COMPARISON: Several prior chest CTs and chest x-rays, the most recent chest x-ray is dated 04/08/2018 TECHNIQUE: 2 views of the chest were obtained. FINDINGS: Improved aeration of the right hemidiaphragm. There remains thickening of the lateral pleural surface in addition to blunting of the right costophrenic angle. This likely represents a combination of pleural thickening and small amount of pleural fluid. Right perihilar fullness is again noted which corresponds with some regions of atelectasis and consolidation identified on recent cross-sectional imaging. No pneumothorax is present. The left hemithorax is well aerated. IMPRESSION: Overall there is improved aeration of the right hemidiaphragm with residual pleural thickening and likely a small amount of pleural fluid. SERVICE DATE: 04/11/18- EXAM TYPE: RAD - XRY-CHEST XRAY, TWO VIEWS EXAMINATION: XR CHEST CLINICAL INFORMATION: Shortness of breath. COMPARISON: Chest radiography 04/09/2018. TECHNIQUE: 2 views of the chest were obtained. FINDINGS: Persistent blunting of the right costophrenic angle with adjacent parenchymal opacification and thickening of the right lateral pleural stripe. There is new/worsening blunting of the left costophrenic angle and mild thickening of the left lateral pleural stripe. Adjacent left basilar opacification. No pneumothorax. The cardiac contour is prominent, unchanged. No acute osseous abnormalities. IMPRESSION: Stable to mildly worsened moderate right pleural effusion with adjacent parenchymal atelectasis/consolidation. New small left pleural effusion with adjacent basilar opacification. SERVICE DATE: 04/13/18-1210 EXAM TYPE: RAD - XRY-CHEST XRAY, TWO VIEWS EXAMINATION: XR CHEST CLINICAL INFORMATION: Pleural effusion. COMPARISON: Chest radiograph dated 04/11/2018. TECHNIQUE: 2 views of the chest were obtained. FINDINGS: The cardiomediastinal silhouette is similar to what was seen on the prior chest radiograph dated 04/11/2018. There is uncoiling of the thoracic aorta. There is slightly improved aeration of the left lung. A tiny left pleural effusion persists. No left pneumothorax. There is a moderate size right pleural effusion, minimally smaller than on the prior examination. There is linear atelectasis versus scarring within the right mid to lower lung. There is no right pneumothorax. There are degenerative changes of the shoulders and spine. IMPRESSION: 1. Slightly improved aeration of the left lung. Tiny left pleural effusion persists. 2. Moderate size right pleural effusion, minimally smaller than on prior study. Linear atelectasis versus scarring within the right mid to lower lung. SERVICE DATE: 04/16/18 EXAM TYPE: RAD - XRY-CHEST XRAY, TWO VIEWS EXAMINATION: XR CHEST CLINICAL INFORMATION: Swelling in legs. Shortness of breath. COMPARISON: Several prior chest x-rays, most recent of which is dated 04/13/2018. TECHNIQUE: 2 views of the chest were obtained. FINDINGS: The cardiomediastinal silhouette is borderline enlarged and again found to be shifted towards the right side with volume loss in the right hemithorax seen. There is a moderate right-sided pleural effusion, which is seen layering up to the lung apex along the lateral chest wall with associated patchy parenchymal opacities in the right mid and lower lung. Findings are unchanged compared to the prior exam. The left lung remains fully expanded and clear. Trace left-sided pleural effusion persists, also unchanged. No pneumothorax is seen. Bony structures are remarkable only for moderate vertebral spondylosis in the mid and lower thoracic spine. IMPRESSION: 1. No interval change in right-sided pleural effusion, layering along the right lateral chest wall to the lung apex. 2. No interval change in right mid and lower lung parenchymal opacities, likely representing atelectatic changes and volume loss. 3. No interval change in trace left-sided pleural effusion. 1. Successful ultrasound-guided thoracentesis of loculated posterior right pleural effusion yielding 240 mL. 2. Successful removal of right-sided pleural drainage catheter. Significant decrease in size of the right-sided pleural effusion as compared to prior study dated 04/05/2018. No evidence of any right-sided pneumothorax. Pertinent Lab Results: Laboratory Tests 04/05/18 1426: Phlebotomy Draw Site RT CHEST TUBE, Pleural pH 7.28 04/05/18 1425: Fluid WBC 1333 H, Fld Total RBCs Counted [id number] H 04/05/18 1425: Fluid Glucose 124, Fluid Total Protein 4.3, Fluid LDH 795 04/05/18 1153: Urine Color YEL, Urine Clarity CLEAR, Urine pH 6.0, Ur Specific [place] 1.020, Urine Protein NEG, Urine Ketones NEG, Urine Nitrite NEG, Urine Bilirubin NEG, Urine Urobilinogen 0.2, Ur Leukocyte Esterase NEG, Ur Microscopic EXAM NOT REQUIRED, Urine Hemoglobin NEG, Urine Glucose NEG 04/05/18 1100: Anion Gap 13, Estimated GFR 59 L, BUN/Creatinine Ratio 31.7 H, Glucose 162 H, Calcium 8.3 L, Total Bilirubin 0.6, AST 39, ALT 52, Alkaline Phosphatase 143 H , Lactate Dehydrogenase 334, Troponin I < 0.01, Whm-C-[place] Pept 319 H, Total Protein 5.8 L, Albumin 2.9 L, Globulin 2.9, Albumin/Globulin Ratio 1.0 L, PT 13.2 H, INR 1.21 H, APTT 28, CBC w Diff NO MAN DIFF REQ, RBC 4.90, MCV 82.4, MCH 27.3, MCHC 33.2, RDW 15.1 H, MPV 7.1 L, Gran % 83.0 H, Lymphocytes % 5.8 L, Monocytes % 10.7 H, Eosinophils % 0.4, Basophils % 0.1, Absolute Granulocytes 9.3 H, Absolute Lymphocytes 0.7 L, Absolute Monocytes 1.2 H, Absolute Eosinophils 0, Absolute Basophils 0 04/06/18 0650: Anion Gap 12, Estimated GFR > 60, BUN/Creatinine Ratio 39.0 H, CBC w Diff NO MAN DIFF REQ, RBC 4.68 L, MCV 83.2, MCH 27.0, MCHC 32.5 L, RDW 14.9 H, MPV 8.0, Gran % 79.2 H, Lymphocytes % 7.3 L, Monocytes % 12.7 H, Eosinophils % 0.7, Basophils % 0.1, Absolute Granulocytes 8.9 H, Absolute Lymphocytes 0.8 L, Absolute Monocytes 1.4 H, Absolute Eosinophils 0.1, Absolute Basophils 0 04/08/18 0705: Anion Gap 11, Estimated GFR 54 L, BUN/Creatinine Ratio 46.2 H, CBC w Diff NO MAN DIFF REQ, RBC 4.68 L, MCV 81.3, MCH 27.1, MCHC 33.4, RDW 14.9 H, MPV 8.0, Gran % 83.1 H, Lymphocytes % 6.2 L, Monocytes % 10.1 H, Eosinophils % 0.4, Basophils % 0.2, Absolute Granulocytes 11.1 H, Absolute Lymphocytes 0.8 L, Absolute Monocytes 1.4 H, Absolute Eosinophils 0.1, Absolute Basophils 0 04/09/18 0640: Anion Gap 10, Estimated GFR > 60, BUN/Creatinine Ratio 47.8 H, CBC w Diff NO MAN DIFF REQ, RBC 4.17 L, MCV 82.2, MCH 27.3, MCHC 33.2, RDW 14.9 H, MPV 8.0, Gran % 83.0 H, Lymphocytes % 5.6 L, Monocytes % 11.0 H, Eosinophils % 0.3, Basophils % 0.1, Absolute Granulocytes 10.8 H, Absolute Lymphocytes 0.7 L, Absolute Monocytes 1.4 H, Absolute Eosinophils 0, Absolute Basophils 0 Anion Gap 8, Estimated GFR > 60, BUN/Creatinine Ratio 34.3 H, CBC w Diff NO MAN DIFF REQ, RBC 3.98 L, MCV 81.9, MCH 27.0, MCHC 32.9 L, RDW 15.0 H, MPV 7.9, Gran % 81.5 H, Lymphocytes % 6.6 L, Monocytes % 9.6 H, Eosinophils % 1.8, Basophils % 0.5, Absolute Granulocytes 8.2 H, Absolute Lymphocytes 0.7 L, Absolute Monocytes 1.0 H, Absolute Eosinophils 0.2, Absolute Basophils 0 Disposition Summary Disposition Principal Diagnosis: Right pleural effusions, after discharge and cytology returned positive for metastatic carcinoma Acute respiratory failure secondary to the large pleural effusion Edema Additional Diagnosis: Diabetes mellitus 2 BPH GERD Discharge Disposition: home health services Discharge Instructions General Discharge Information Code Status: Full Code Patient's Diet: Diabetic healthy heart Patient's Activity: As tolerated Follow-Up Instructions/Appts: Follow-up with Dr. Coburn and after that with the oncologist and with Dr. Moore Medications at Discharge Discharge Medications: Continue taking these medications: Lisinopril (Lisinopril) 5 MG TABLET 1 Tablet ORAL DAILY Days = 0 Comments: Last Taken: 04/11/18 Time: 8:00 AM Aspirin (Lo-Dose Aspirin EC) 81 MG TABLET.DR 1 Tablet ORAL DAILY Days = 0 Comments: Last Taken: 04/11/18 Time: 8:00 AM Atorvastatin Calcium (Atorvastatin Calcium) 20 MG TABLET 1 Tablet ORAL DAILY Days = 0 Comments: Last Taken: 04/11/18 Time: 8:00 AM Pioglitazone HCl (Pioglitazone HCl) 30 MG TABLET 1 Tablet ORAL DAILY Days = 0 Comments: NOT GIVEN IN HOSPITAL Cyclosporine (Restasis) 0.05 % DROPERETTE 1 Drop In the eye TWICE DAILY Qty = 0 Instructions: NOT GIVEN IN HOSPITAL Silodosin (Rapaflo) 8 MG CAPSULE 1 Capsule ORAL DAILY Days = 0 Comments: NOT GIVEN IN HOSPITAL Vilazodone (Viibryd) 40 MG TABLET 1 Tablet ORAL DAILY Days = 0 Comments: NOT GIVEN IN HOSPITAL Psyllium Husk/Aspartame (Metamucil Sugar-Free Powder) 3.4 GRAM/5.8 GRAM POWDER 1 Packet ORAL Every Day Comments: NOT GIVEN IN HOSPITAL Copies To: Vern URIBE,Merna Obregon; Geoff Moore MD Attending MD Review Statement Documenting Attending: Geoff Moore MD
== END 2018-04-11 16:20 | DRG 843 ==
LOC: ERH 10:24 → 2NB 13:54 → ERHI 13:54 → EDBEDREQ 14:39 → ENRESERV 14:44 → ENTRNSPT 16:32 → EDTRNSPT 16:46 → EDTRNSPTSTS 16:46 → CMPTRNSPT 17:03 → 2NB 17:14 → 2NA 04-10 13:34 → ENTRNSPT 04-11 15:56 → EDTRNSPTSTS 04-11 16:12 → EDTRNSPT 04-11 16:12 → 2NA 04-11 16:20 → CMPTRNSPT 04-11 16:27
PROVIDERS: Hospitalist; Physician Assistant Medical; Student in an Organized Health Care Education/Training Program
PROC: 0W9930Z Drainage of Right Pleural Cavity with Drainage Device, Percutaneous Approach (ICD-10-PCS; principal; 2018-04-05)
PROC: 0W993ZZ Drainage of Right Pleural Cavity, Percutaneous Approach (ICD-10-PCS; 2018-04-08)
PROC: 0WP9X3Z Removal of Infusion Device from Right Pleural Cavity, External Approach (ICD-10-PCS; 2018-04-08)
DX: C80.1 Malignant (primary) neoplasm, unspecified (principal); J96.01 Acute respiratory failure with hypoxia; J91.0 Malignant pleural effusion; I95.9 Hypotension, unspecified; E11.9 Type 2 diabetes mellitus without complications; N40.0 Benign prostatic hyperplasia without lower urinary tract symptoms; K21.9 Gastro-esophageal reflux disease without esophagitis; D47.3 Essential (hemorrhagic) thrombocythemia; Z86.010 Personal history of colon polyps; H91.90 Unspecified hearing loss, unspecified ear; D72.829 Elevated white blood cell count, unspecified; F17.200 Nicotine dependence, unspecified, uncomplicated
CPT/HCPCS: 04007; 2NASP; 2NBSP; 87075; 32551; 36415; 36592; 71045; 71046; 81003; 82436; 87449; 87450; 88305; 93005; 93010; 93306; 96374; 99291; J0456; J0696; J1650; J1940; J7040